=== PATIENT | male | born 1960 | race Caucasian/White ===

== ENCOUNTER 2019-09-18 08:29 | Outpatient (CLI) | payer OTHER, SELFPAY ==
--- NOTE | ~2019-09-18 | US_ITS ---
EXAMINATION: US arterial ankle brachial ind DATE: 09/18/2019 09:03 INDICATION: Claudication with burning sensation at the thighs. TECHNIQUE: Segmental pressures and plethysmographic and Doppler waveforms of the brachial and lower e xtremity arteries were obtained. COMPARISON: None. FINDINGS: Right and left brachial artery pressures of 106 mm Hg and 108 mm Hg, respectively, are concordant (no rmal difference <= 30 mmHg). The right ankle-brachial index (MAYA) is 1.30 (normal >= 0.9-1.0). The right great toe-brachial index (TBI) is 1.06 (normal >= 0.65). Arterial Doppler waveforms are biphasic with brisk systolic upstrokes at both the right posterior tibial and dorsalis pedis arteries. The left MAYA is 1.33. The left TBI is 0.91. Arterial Doppler waveforms are biphasic with brisk systol ic upstrokes at both the left posterior tibial and dorsalis pedis arteries. IMPRESSION: 1. Normal study with normal bilateral ABIs and TBI's. Reviewed, dictated and finalized at location A. OR C [employer]
== END 2019-09-18 08:30 | disposition home or self-care (01) ==
PROVIDERS: PCP Student in an Organized Health Care Education/Training Program; Visit Provider Student in an Organized Health Care Education/Training Program
DX: I73.9 Peripheral vascular disease, unspecified (principal)
CPT/HCPCS: 93922

== ENCOUNTER 2020-02-18 16:46 | Outpatient (CLI) | payer OTHER, SELFPAY ==
[2020-02-18 17:50] LABS: Basophils Absolute Auto 0.1 K/mm3 (0.0-0.1); Basophils Percent Auto 0.5 % (0.2-1.2); Eosinophils Absolute Auto 0.1 K/mm3 (0-0.3); Eosinophils Percent Auto 0.6 % (0-4.4); Hematocrit 42.3 % (42.0-52.0); Hemoglobin 14.1 g/dL (14.0-18.0); Immature Granulocyte Absolute 0.02 K/mm3 (0.00-0.031); Immature Granulocyte Percent A 0.2 % (0-0.5); Lymphocytes Absolute Auto 3.87 K/mm3 (0.9-3.2); Lymphocytes Percent Auto 38.9 % (18.3-44.2); Mean Corpuscular HGB Conc 33.3 g/dl (32-36); Mean Corpuscular Hemoglobin 31.9 pg (26-34); Mean Corpuscular Volume 95.7 fl (80-100); Mean Platelet Volume 9.7 fl (7.4-10.4); Monocytes Absolute Auto 0.9 K/mm3 (0.1-0.6); Monocytes Percent Auto 8.9 % (2.6-8.5); Neutrophils Absolute Auto 5.1 K/mm3 (1.3-6.7); Neutrophils Percent Auto 50.9 % (45.5-73.1); Platelet Count Result 337 k/mm3 (150-375); Red Blood Count 4.42 M/mm3 (4.6-6.20); Red Cell Distribution Width 13.9 % (11.5-14.5); White Blood Count 9.9 K/mm3 (4.5-10.0)
[2020-02-18 18:02] LABS: Alanine Aminotransferase 12 U/L (4-50); Albumin Level 4.3 g/dL (3.5-5.1); Alkaline Phosphatase 85 U/L (38-126); Aspartate Amino Transferase 19 U/L (17-59); Bilirubin,Total 0.2 mg/dL (0.2-1.3); Blood Urea Nitrogen 11 mg/dL (9-20); Calcium 9.1 mg/dL (8.4-10.2); Carbon Dioxide 23 mmol/L (22-30); Chloride 107 mmol/L (98-107); Cholesterol 163 mg/dL (0-200); Estimated Glomerular Filt Rate > 60; Glucose 97 mg/dL (75-110); HDL Direct 43 mg/dL; Sodium 139 mmol/L (137-145); Triglycerides 181 mg/dL (<150)
[2020-02-18 18:13] LABS: LDL Cholesterol Direct 89 mg/dL
[2020-02-18 18:33] LABS: Prostate Specific Antigen 0.6 ng/mL (< OR = 4.0)
[2020-02-18 19:08] LABS: Folic Acid 6.8 ng/mL (2.76->20)
[2020-02-18 19:12] LABS: Vitamin D 25 Hydroxy 45.6 ng/mL
== END 2020-02-18 16:47 | disposition home or self-care (01) ==
LOC: ANHLAB 16:51
PROVIDERS: PCP Student in an Organized Health Care Education/Training Program; Visit Provider Student in an Organized Health Care Education/Training Program
DX: Z13.0 Encounter for screening for diseases of the blood and blood-forming organs and certain disorders involving the immune mechanism (principal); Z13.29 Encounter for screening for other suspected endocrine disorder; Z13.228 Encounter for screening for other metabolic disorders; Z12.5 Encounter for screening for malignant neoplasm of prostate
CPT/HCPCS: 36415; 80053; 80061; 82306; 82607; 82746; 84153; 84443; 85025; G0103

== ENCOUNTER 2021-02-08 10:04 | Emergency (ER) | payer OTHER, SELFPAY ==
--- NOTE | ~2021-02-08 | XR_ITS ---
EXAMINATION: XR chest 2V DATE: 02/08/2021 10:59 INDICATION: Left chest pain. TECHNIQUE: Frontal and lateral views of the chest were obtained. COMPARISON: Chest 2 views 08/31/2019, chest CT 05/12/2019 FINDINGS: There is mild scarring at left lung apex. There is mild atelectasis at left lung base. A ca lcified left lung nodule and calcified left hilar lymph nodes are consistent with old granulomatous d isease. No pleural effusion or pneumothorax. The heart size is normal. IMPRESSION: 1. Mild atelectasis at left lung base. 2. Stable mild scarring at left lung apex. Reviewed, dictated and finalized at location A.
--- NOTE | 2021-02-08 10:08 | ECG_ITS ---
Measurements Intervals [place] Rate: 70 P: 66 NV: 133 QRS: 44 QRSD: 78 T: 43 QT: 354 QTc: 384 Interpretive Statements SINUS RHYTHM NORMAL ECG Electronically Signed On 02-08-2021 11:48:45 CDT by Thanh Fierro D.O.
[2021-02-08 10:12] VITALS: BP 108/66; PULSE 70; RESP 16; TEMP 36.9; O2SAT 96
[2021-02-08 10:25] VITALS: PULSE 69
[2021-02-08] MEDS: ASPIRIN 81 MG CHEWABLE TABLET 324 MG PO (10:27)
[2021-02-08 10:40] LABS: Basophils Percent Auto 0.5 % (0.2-1.2); Eosinophils Absolute Auto 0.1 K/mm3 (0-0.3); Eosinophils Percent Auto 1.1 % (0-4.4); Hematocrit 43.2 % (42.0-52.0); Hemoglobin 14.2 g/dL (14.0-18.0); Immature Granulocyte Absolute 0.02 K/mm3 (0.00-0.031); Immature Granulocyte Percent A 0.2 % (0-0.5); Lymphocytes Absolute Auto 3.47 K/mm3 (0.9-3.2); Lymphocytes Percent Auto 42.2 % (18.3-44.2); Mean Corpuscular HGB Conc 32.9 g/dl (32-36); Mean Corpuscular Hemoglobin 31.8 pg (26-34); Mean Corpuscular Volume 96.9 fl (80-100); Monocytes Absolute Auto 0.8 K/mm3 (0.1-0.6); Neutrophils Absolute Auto 3.8 K/mm3 (1.3-6.7); Platelet Count Result 370 k/mm3 (150-375); Red Blood Count 4.46 M/mm3 (4.6-6.20); Red Cell Distribution Width 14.1 % (11.5-14.5); White Blood Count 8.2 K/mm3 (4.5-10.0)
[2021-02-08] MEDS: KETOROLAC 30 MG/ML VIAL (*BKC) IV PUSH (10:44)
[2021-02-08 10:48] LABS: Prothrombin Time 13.1 Seconds (11.1-14.7)
[2021-02-08 10:49] LABS: Anion Gap 9 mmol/L (8-16); Blood Urea Nitrogen 14 mg/dL (9-20); Calcium 9.3 mg/dL (8.4-10.2); Carbon Dioxide 24 mmol/L (22-30); Chloride 107 mmol/L (98-107); Estimated CRCL calculation 61 ml/min; Estimated Glomerular Filt Rate > 60; Glucose 117 mg/dL (75-110); Partial Thromboplastin Time 27.1 SECONDS (22.3-36.8); Potassium 3.7 mmol/L (3.4-5.0); Sodium 140 mmol/L (137-145)
[2021-02-08 11:01] LABS: Troponin I < 0.012 ng/mL (0.000-0.034)
[2021-02-08 11:40] VITALS: BP 112/77; PULSE 58; RESP 15; O2SAT 98
--- NOTE | 2021-02-08 12:00 | ED.GENADULT ---
HPI - General Adult General Chief complaint: Chest Pain Stated complaint: chest pain, L arm numbness Time Seen by Provider: 02/08/21 10:35 History of Present Illness HPI narrative: Patient is a 60-year-old male who presents ER with left-sided chest pain. Lateral chest wall that is sharp and pinpoint. No radiation. It occurred while he was trying to take a hole. Had similar discomfort about a month ago while doing some other labor. He is scheduled to have a stress test in a week. No sweats or chills or nausea or vomiting. No shortness of breath. No other exertional chest discomfort outside when he is physically doing something. Related Data Allergies Allergy/AdvReac Type Severity Reaction Status Date / Time No Known Allergies Allergy Verified 09/07/19 13:55 Review of Systems Review of Systems: All systems reviewed & are unremarkable except as noted in HPI and below Constitutional: Constitutional: Denies chills, Denies fever(s) and Denies weakness ENT: Denies nasal congestion and Denies sore throat Cardiovascular: Cardiovascular: Reports chest pain, Denies rapid heart rate and Denies radiating jaw, neck or arm pain Respiratory: Respiratory: Denies cough, Denies dyspnea and Denies wheezing Gastrointestinal: Gastrointestinal: Denies abdominal pain, Denies nausea and Denies vomiting PMFSH Past Medical History Medical History (Updated 02/08/21 @ 14:26 by Parviz Enciso MD) Hypercholesteremia Ruptured spleen Surgical History Surgical History (System 09/07/19 @ 13:55 by Harriett Goetz) S/P splenectomy Family History Family History (System 09/07/19 @ 13:55 by Harriett Goetz) Father Cerebrovascular accident, Onset Age: 72 Family history of Parkinson's disease, Onset Age: 72 Patient's father is , Onset Age: 72 Mother Carcinoma of colon Patient's mother is Social History Social History (System 09/07/19 @ 13:55 by Harriett Goetz) Smoking status: Former smoker Second hand tobacco smoke exposure: No Alcohol intake: never Gender identity (if verbalized by the patient): Male Exam Narrative: Exam Narrative: GENERAL: Well-appearing, well-nourished, and in no acute distress. HEAD: Normocephalic, atraumatic. ENT: Mucous membranes moist. CHEST: Clear to auscultation. No respiratory distress. Point tender left mid axillary line lower chest wall. HEART: Regular rate and rhythm. Normal peripheral pulses. ABDOMEN: Soft, nontender, nondistended. EXTREMITIES: Normal range of motion. No edema. SKIN: Warm, dry, no rash. NEURO: Alert and oriented x3. PSYCH: Normal mood and affect. Course Course Emergency Course: Pain felt to be musculoskeletal given the fact that is reproducible. Troponins negative x2. Negative EKG. Will give work note to avoid exertion until cleared by stress test. Patient with normal heart rate when he is not sleeping. Bradycardia is only while lying peacefully in bed. Vital Signs Vital signs: Vital Signs Temperature 98.4 F 02/08/21 10:12 Pulse Rate 70 02/08/21 10:12 Respiratory Rate 16 02/08/21 10:12 Blood Pressure 108/66 02/08/21 10:12 Pulse Oximetry 96 02/08/21 10:12 Temperature 98.4 F 02/08/21 10:12 Pulse Rate 48 L 02/08/21 13:33 Respiratory Rate 13 02/08/21 13:33 Blood Pressure 112/77 02/08/21 11:40 Pulse Oximetry 96 02/08/21 13:33 Medical Decision Making Vital Signs Vital Signs: Vital Signs Temperature 98.4 F 02/08/21 10:12 Pulse Rate 70 02/08/21 10:12 Respiratory Rate 16 02/08/21 10:12 Blood Pressure 108/66 02/08/21 10:12 Pulse Oximetry 96 02/08/21 10:12 Temperature 98.4 F 02/08/21 10:12 Pulse Rate 48 L 02/08/21 13:33 Respiratory Rate 13 02/08/21 13:33 Blood Pressure 112/77 02/08/21 11:40 Pulse Oximetry 96 02/08/21 13:33 Lab Data Result diagrams: 02/08/21 10:28 02/08/21 10:28 Labs: Lab Resu
[2021-02-08 13:33] VITALS: PULSE 48; RESP 13; O2SAT 96
[2021-02-08 13:48] LABS: Troponin I < 0.012 ng/mL (0.000-0.034)
[2021-02-08 14:40] VITALS: BP 112/79; PULSE 57; RESP 14; O2SAT 98
== END 2021-02-08 14:40 | disposition home or self-care (01) ==
PROVIDERS: Emergency Provider Emergency Medicine; PCP Student in an Organized Health Care Education/Training Program
DX: R07.89 Other chest pain (principal); E78.00 Pure hypercholesterolemia, unspecified; Z87.891 Personal history of nicotine dependence; Z90.81 Acquired absence of spleen
CPT/HCPCS: 36415; 71046; 80048; 84484; 85025; 85055; 85610; 85730; 93005; 96374; 99284; A9270; J1885

== ENCOUNTER → 2021-07-27 02:51 | Outpatient (CLI) | payer OTHER, SELFPAY ==
[2021-07-27 19:47] LABS: SARS-CoV-2 RNA PCR Negative
== END ==
PROVIDERS: PCP Student in an Organized Health Care Education/Training Program; Visit Provider Student in an Organized Health Care Education/Training Program
DX: R09.82 Postnasal drip (principal); R53.83 Other fatigue; Z20.822 Contact with and (suspected) exposure to COVID-19
CPT/HCPCS: C9803; U0003; U0005

== ENCOUNTER 2022-05-26 21:30 | Inpatient (IN) | payer OTHER, SELFPAY ==
[2022-05-26] VITALS (9 sets, daily range): BP systolic 116–121; BP diastolic 74–84; PULSE 58–76; RESP 10–18; TEMP 37.3; O2SAT 80–94
--- NOTE | ~2022-05-26 | XR_ITS ---
EXAMINATION: XR chest 2V DATE: 05/26/2022 22:11 INDICATION: Chest pain TECHNIQUE: PA and lateral views of the chest were obtained. COMPARISON: Chest radiograph dated 02/08/2021 FINDINGS: Volume loss in the left hemithorax with elevation of left hemidiaphragm. Oblique bandlike discoid ate lectasis at the left lower lung zone. There is a thinner linear band of discoid atelectasis in the ri ght lower lung zone. No pulmonary edema, pleural effusion or pneumothorax. Calcified nodules in the l eft midlung zone and calcified left hilar and mediastinal lymph nodes consistent with old granulomato us disease. Heart size is normal. Mild thoracolumbar spondylosis. IMPRESSION: 1. Linear and bandlike opacities in the bilateral lower lung zones, left greater than right, the conf iguration favoring atelectasis over pneumonia. Reviewed, dictated and finalized at location A. IMPRESSION: 1. Linear and bandlike opacities in the bilateral lower lung zones, left greate r than right, the configuration favoring atelectasis over pneumonia.
--- NOTE | 2022-05-26 21:31 | ECG_ITS ---
Measurements Intervals [place] Rate: 67 P: 61 [place]: 137 QRS: 30 QRSD: 76 T: 39 QT: 353 QTc: 373 Interpretive Statements SINUS RHYTHM SMALL U WAVE PRESENT, CONSIDER HYPOKALEMIA. COMPARED TO ECG 02/08/2021 10:11:33 NO SIGNIFICANT CHANGES Electronically Signed On 05-27-2022 8:52:33 CDT by Jennifer Bassett M.D.
[2022-05-26 21:53] LABS: Basophils Absolute Auto 0.1 K/mm3 (0.0-0.1); Basophils Percent Auto 0.8 % (0.2-1.2); Eosinophils Absolute Auto 0.1 K/mm3 (0-0.3); Eosinophils Percent Auto 1.5 % (0-4.4); Hematocrit 45.3 % (42.0-52.0); Hemoglobin 15.2 g/dL (14.0-18.0); Immature Granulocyte Absolute 0.01 K/mm3 (0.00-0.031); Immature Granulocyte Percent A 0.1 % (0-0.5); Lymphocytes Absolute Auto 3.99 K/mm3 (0.9-3.2); Lymphocytes Percent Auto 45.2 % (18.3-44.2); Mean Corpuscular HGB Conc 33.6 g/dl (32-36); Mean Corpuscular Hemoglobin 31.9 pg (26-34); Mean Corpuscular Volume 95.2 fl (80-100); Mean Platelet Volume 9.8 fl (7.4-10.4); Monocytes Absolute Auto 1.2 K/mm3 (0.1-0.6); Monocytes Percent Auto 13.1 % (2.6-8.5); Neutrophils Absolute Auto 3.5 K/mm3 (1.3-6.7); Neutrophils Percent Auto 39.3 % (45.5-73.1); Platelet Count Result 293 k/mm3 (150-375); Red Blood Count 4.76 M/mm3 (4.6-6.20); Red Cell Distribution Width 13.7 % (11.5-14.5); White Blood Count 8.8 K/mm3 (4.5-10.0)
[2022-05-26 22:01] LABS: Alanine Aminotransferase 33 U/L (6-50); Albumin Level 4.3 g/dL (3.5-5.1); Alkaline Phosphatase 78 U/L (38-126); Anion Gap 11 mmol/L (8-16); Aspartate Amino Transferase 37 U/L (17-59); Bilirubin,Total 0.2 mg/dL (0.2-1.3); Blood Urea Nitrogen 16 mg/dL (9-20); Calcium 8.3 mg/dL (8.4-10.2); Carbon Dioxide 21 mmol/L (22-30); Chloride 104 mmol/L (98-107); Estimated CRCL calculation 51 ml/min; Estimated Glomerular Filt Rate > 60; Glucose 102 mg/dL (65-110); Lipase 229 U/L (23-300); Potassium 3.8 mmol/L (3.4-5.0); Sodium 136 mmol/L (137-145)
[2022-05-26 22:03] LABS: Partial Thromboplastin Time 29.7 SECONDS (22.3-36.8)
[2022-05-26 22:09] LABS: Atypical Lymphocytes Present; Platelet Estimate Adequate (Adequate)
[2022-05-26 22:11] LABS: Schistocytes None Seen (NORMAL)
[2022-05-26 22:12] LABS: Troponin I < 0.012 ng/mL (0.000-0.034)
[2022-05-26] MEDS: ASPIRIN 81 MG CHEWABLE TABLET 324 MG PO (22:32)
[2022-05-26 23:46] LABS: Influenza A QL RT-PCR Negative (Negative); Influenza B QL RT-PCR Negative (Negative); SARS-CoV-2 RNA PCR Positive
[2022-05-26 23:53] LABS: NT Pro B Type Natriuretic Pept 35 pg/mL (5-100)
[2022-05-27] VITALS (16 sets, daily range): BP systolic 103–115; BP diastolic 61–78; PULSE 57–70; RESP 10–20; TEMP 36.3–37; O2SAT 86–98; BMI 27.4
[2022-05-27 01:07] LABS: Troponin I < 0.012 ng/mL (0.000-0.034)
--- NOTE | 2022-05-27 01:09 | ED.GENADULT ---
HPI - General Adult General Chief complaint: Chest Pain Stated complaint: chest pain/cough X3 days Time Seen by Provider: 05/26/22 22:47 History of Present Illness HPI narrative: This is a 61-year-old male presenting ED with chief complaint flu-like symptoms for 3 days. The patient also has a diffuse chest pain when he coughs that is all over, 5/10 triggered by his cough and resolves in between episodes. Patient notes he has had fever, chills and headache. Patient does have a sick child at home. Patient is asplenic but believes he has had the appropriate vaccinations. Patient has not been vaccinated for COVID Related Data Allergies Allergy/AdvReac Type Severity Reaction Status Date / Time No Known Allergies Allergy Verified 05/26/22 22:07 Review of Systems Review of Systems: CONSTITUTIONAL: Denies night sweats. EYES: No eye pain ENT: Denies rhinorrhea CARDIOVASCULAR: Denies palpitations RESPIRATORY: Denies hemoptysis GASTROINTESTINAL: Denies hematemesis GENITOURINARY: Denies hematuria. SKIN: Denies rash MUSCULOSKELETAL: Denies myalgia. NEUROLOGIC: Denies weakness. PSYCHIATRIC: Denies delusions PMFSH Past Medical History Medical History Hypercholesteremia Ruptured spleen Surgical History Surgical History S/P splenectomy Family History Family History Father Cerebrovascular accident, Onset Age: 72 Family history of Parkinson's disease, Onset Age: 72 Patient's father is , Onset Age: 72 Mother Carcinoma of colon Patient's mother is Social History Social History Smoking status: Former smoker Second hand tobacco smoke exposure: No Alcohol intake: never Gender identity (if verbalized by the patient): Male Exam Narrative: APPEARANCE: No apparent distress. Head atraumatic. EYES: PERRLA/EOMI, NOSE: Normal no drainage NECK: Supple, Trachea midline RESPIRATORY: CTAB, No increased work of breathing. CARDIOVASCULAR: S1S2 appreciated ABDOMINAL: Soft, nontender, nondistended, MUSCULOSKELETAl: No obvious deformities NEURO: Alert. Moving 4/4 extremities SKIN:: Warm, dry. Normal color PSYCHIATRIC: Normal affect Course Vital Signs Vital signs: Vital Signs Temperature 99.2 F 05/26/22 21:32 Pulse Rate 76 05/26/22 21:32 Respiratory Rate 14 05/26/22 21:32 Blood Pressure 119/78 05/26/22 21:32 Pulse Oximetry 94 05/26/22 21:32 Temperature 99.2 F 05/26/22 21:32 Pulse Rate 63 05/26/22 22:31 Respiratory Rate 14 05/26/22 21:32 Blood Pressure 119/78 05/26/22 21:32 Pulse Oximetry 93 05/26/22 22:41 Oxygen Delivery Nasal Cannula 05/26/22 22:41 Oxygen Flow Rate 3 05/26/22 22:41 Procedures Pulse Oximetry Interpretation Digit-Finger: Pulse Oximetry Interpretation Date: 05/27/22 Initial pulse oximetry readin Pulse Oximetry: 95 Actions Taken: increased FIO2 to (2 L NC) Medical Decision Making MDM Narrative Medical decision making narrative: this is a 61-year-old male presenting to ED with URI symptoms. His COVID swab was positive. The patient is hypoxic on room air when speaking or when walking. He has been placed on 2 L oxygen. Laboratory studies were within acceptable limits. As the patient is requiring supplemental oxygen he will be treated with dexamethasone and admitted to the hospital for further management. Upon re-evaluation patient is doing better on oxygen. Vital signs are still stable. Chest x-ray did not reveal any infiltrates. EKG interpretation: Rhythm [sinus], Rate 67, [place] -[normal], [place] -[normal], QRS [narrow], QTC [normal], T waves -[negative for concerning inversions], ST Segments - [Negative for concerning elevations] Final interpretations:
--- NOTE | 2022-05-27 01:11 | PM.IMHP ---
H&P: HPI History of Present Illness Date/Time: 05/27/22 01:11 Chief Complaint: shortness of breath Narrative: This is a 61-year-old male with no significant past medical history patient presents to the emergency room due to 3 days of body aches pains, chills, poor appetite, he has been taking care of his 13-year-old who is sick with flu-like symptoms at home. patient denies any nausea, vomiting, abdominal pain, has had some diarrhea. has had persistent cough productive of clear scanty phlegm at times. Preliminary workup was significant for a positive COVID-19 patient was also found to have low oxygen saturation required supplemental oxygen by nasal cannula. Patient is been admitted for further evaluation management and treatment. Review of Systems Review of Systems: Cough, body aches and pains, poor appetite. Constitutional: Constitutional: Reports body ache(s), Denies chills, Reports fatigue, Denies fever(s), Reports malaise, Denies night sweats, Reports poor appetite and Reports weakness Eyes: Eyes: Denies change in vision ENT: Denies dysphagia, Denies vertigo, Denies dizziness and Denies odynophagia Cardiovascular: Cardiovascular: Denies chest pain, Denies syncope, Denies leg edema, Denies lightheadedness, Denies palpitations and Denies dyspnea on exertion Respiratory: Respiratory: Denies change in phlegm color, Reports cough, Denies excessive phlegm production and Reports dyspnea Gastrointestinal: Gastrointestinal: Denies abdominal pain, Denies dyspepsia, Denies heartburn, Denies diarrhea, Denies nausea and Denies vomiting Genitourinary: Genitourinary: Denies dysuria Musculoskeletal: Musculoskeletal: Reports myalgias Integumentary/Breasts: Skin/Breast: Denies rash Neurologic: Denies vertigo, Denies dizziness, Denies focal weakness and Denies Sensory deficit (Neuro) Psychiatric: Psychiatric: Reports no additional psychiatric complaints Endocrine: Endocrine: Denies cold intolerance, Denies flushing, Denies heat intolerance, Denies polyphagia, Denies polydipsia and Denies palpitations Hematologic/Lymphatic: Hematologic/Lymphatic: Reports no additional hematologic/lymphatic complaints and Reports as per HPI Allergic/Immunologic: Allergic/Immunologic: Reports no additional allergic/immunologic complaints and Reports as per HPI [facility] Past Medical History Medical History Hypercholesteremia Ruptured spleen Surgical History Surgical History (Reviewed 05/27/22 @ 01: by Jayden Matias MD) S/P splenectomy Family History Family History (Reviewed 05/27/22 @ : by Jayden Matias MD) Father Cerebrovascular accident, Onset Age: 72 Family history of Parkinson's disease, Onset Age: 72 Patient's father is , Onset Age: 72 Mother Carcinoma of colon Patient's mother is Social History Social History (Reviewed 05/27/22 @ 01: by Jayden Matias MD) Smoking status: Former smoker Second hand tobacco smoke exposure: No Alcohol intake: never Gender identity (if verbalized by the patient): Male Spiritual care concerns: No Has the Lack of Transportation Kept You From Medical Appointments or From Getting Medications?: No Within the Past 12 Months, Were You Worried Whether Your Food Would Run Out Before You Got Money to Buy More?: Never True What is Your Housing Situation Today?: I Have Housing Are You Worried That in the Next 2 Months, You May Not Have Your Own Housing to Live In?: No Do You Have Trouble Paying Your Heating Or Electricity Bill?: No Do You Have Trouble Paying For Medicines?: No Are You Currently Unemployed and Looking for Work?: No Highest Level of Education Completed: High School Diploma/GED Do You Have Trouble With Childcare or the Care of a Family Member?: No Meds Home Medications and Allergies Home Medications Medication Instructions Recorded Confirmed Type
[2022-05-27] MEDS: DEXAMETHASONE SOD PHOS INJ 4 MG/ML VIAL 12 MG IV PUSH (02:04)
--- NOTE | 2022-05-27 02:34 | ADMGEN ---
This patient, Mitchel Walters Jr., was admitted to Medical Room 260-01. Patient/family oriented to hospital policies and general routines including ID bracelet, bed and alarms, visiting hours, pain management, procedures, bathroom and other care routines, personal items, smoking policy, room service/diet, and visiting hours. Information on how to activate the Rapid Response Team has been discussed. Patient/Family are encouraged to report perceived risks to care and to ask questions if they do not understand what they are told or what they should do.
[2022-05-27 04:26] LABS: Troponin I < 0.012 ng/mL (0.000-0.034)
--- NOTE | 2022-05-27 07:15 | PM.IMPN ---
Progress Note: A&P Assessment and Plan (1) Acute respiratory failure due to COVID-19: Code(s): U07.1 - COVID-19; J96.00 - Acute respiratory failure, unspecified whether with hypoxia or hypercapnia Status: Acute Assessment and Plan: Symptom onset approximately 3 days prior to presentation. Positive COVID PCR on 05/26/2022. Patient hypoxic on presentation down to 80% Currently requiring 3 L supplemental O2 Continue dexamethasone #2 for up to 10 days Initiate remdesivir. First dose today. Monitor LFTs while on this medication Monitor oxygen requirements and titrate O2 as needed to maintain sats 92% or above CXR with mild atelectasis and stable scarring Supportive care to include bronchodilators, expectorants, antipyretics, CPT, incentive spirometry Monitor inflammatory markers Patient has not been vaccinated for COVID-19 (2) Pleuritic chest pain: Code(s): R07.81 - Pleurodynia Status: Acute Assessment and Plan: Secondary to above. Pain only occurs with coughing Continue expectorants Analgesics available as needed Troponin negative x3 PE unlikely. No tachycardia or tachypnea. Symptoms only occur with cough. Wells score is 0. (3) Asplenia: Code(s): Q89.01 - Asplenia (congenital) Status: Acute Assessment and Plan: Patient with history of splenic rupture s/p splenectomy. Follows with PCP and reports being up to date with vaccinations Subjective Date/time seen: 05/27/22 07:15 Interval history: Date of service: 05/27/2022 Mitchel Shaquille Walters Jr is a 61-year-old male with a history of hyperlipidemia, arthritis, asplenia, and tobacco abuse who is seen in follow-up for COVID-19 pneumonia. He is feeling okay today. His main complaint is that he has diffuse pleuritic chest pain any time he coughs. He has no chest pain at rest. He had been using cough drops at home and this seemed to help his cough some, but it did become more persistent. He denies shortness of breath. He has had very poor appetite and admits he has not been drinking enough fluids. He denies nausea, vomiting, fever, chills, abdominal pain, diarrhea. Denies weakness, dizziness, lightheadedness. He is able to ambulate independently. Denies headache, body aches. No change in sense of taste or smell. Review of Systems Review of Systems: All systems reviewed & are unremarkable except as noted in HPI and below Exam Narrative: General: Well-nourished, well-appearing 61-year-old male, sitting up in bed, comfortable, NARD Neuro: awake, alert and oriented x4, speech clear, no focal neuro deficits noted HEENMT: normocephalic, atraumatic, EOMI, sclerae anicteric Respiratory: clear to auscultation bilaterally, nonlabored breathing Cardio: regular rate, regular rhythm with S1-S2 Abdomen: nondistended, normoactive bowel sounds, soft, nontender to palpation Extremities: no edema, erythema, or tenderness to palpation, DP pulses 2+ bilaterally Skin: no rashes or lesions, warm and dry Psych: appropriate mood and affect, judgment and insight intact Objective Data Vital Signs Vital Signs: Vital Signs - 24 hr 05/27/22 01:30 05/26/22 21:32 05/26/22 22:31 Temperature 99.2 F Pulse Rate 76 63 Respiratory Rate 14 Blood Pressure 119/78 Pulse Oximetry 94 Pulse Oximetry [Digit-Finger] 95 Oxygen Delivery Oxygen Flow Rate 05/26/22 22:38 05/26/22 22:41 05/26/22 23:00 Temperature Pulse Rate 60 Respiratory Rate 14 Blood Pressure Pulse Oximetry 84 L 93 92 Pulse Oximetry [Digit-Finger] Oxygen Delivery Room Air Nasal Cannula Oxygen Flow Rate 3 05/26/22 23:01 05/26/22 23:15 05/26/22 23:16 Temperature Pulse Rate 62 58 L 61 Respiratory Rate 15 15 10 L Blood Pressure 121/84 116/74 Pulse Oximetry 94 80 L 91 Pulse Oximetry [Digit-Finger] Oxygen Delivery Oxygen Flow Rate 05/26/22 23:53 05/27/22 00:00 05/27/22 00:16 Temperature
[2022-05-27 08:10] LABS: Alanine Aminotransferase 31 U/L (6-50); Estimated CRCL calculation 58 ml/min; Estimated Glomerular Filt Rate > 60
[2022-05-27] MEDS: ALBUTEROL SULFATE (*SP) INHALER 2 PUFF INHALATION ×2 (08:40→22:18)
[2022-05-27] MEDS: guaiFENesin 12 HR 600 MG TABCR PO ×2 (09:58→20:07)
[2022-05-27] MEDS: ENOXAPARIN 40 MG/0.4 ML SYRINGE SUB-Q (09:59)
[2022-05-27] MEDS: REMDESIVIR 200 MG/NS 250 ML 200 MG/250 ML BAG 250 MG IVPB (09:59)
[2022-05-28] MEDS: ALBUTEROL SULFATE (*SP) INHALER 2 PUFF INHALATION ×2 (02:15→14:14)
[2022-05-28 03:59] VITALS: BP 100/57; PULSE 52; RESP 20; TEMP 36.1; O2SAT 95
[2022-05-28 05:55] LABS: Hematocrit 46.4 % (42.0-52.0); Hemoglobin 15.4 g/dL (14.0-18.0); Mean Corpuscular HGB Conc 33.2 g/dl (32-36); Mean Corpuscular Hemoglobin 31.8 pg (26-34); Mean Corpuscular Volume 95.7 fl (80-100); Mean Platelet Volume 10.1 fl (7.4-10.4); Platelet Count Result 289 k/mm3 (150-375); Red Blood Count 4.85 M/mm3 (4.6-6.20); Red Cell Distribution Width 13.6 % (11.5-14.5); White Blood Count 10.1 K/mm3 (4.5-10.0)
[2022-05-28 06:14] LABS: Alanine Aminotransferase 29 U/L (6-50); Albumin Level 4.5 g/dL (3.5-5.1); Alkaline Phosphatase 71 U/L (38-126); Anion Gap 15 mmol/L (8-16); Aspartate Amino Transferase 33 U/L (17-59); Bilirubin,Total 0.3 mg/dL (0.2-1.3); Blood Urea Nitrogen 20 mg/dL (9-20); CRP < 0.5 mg/dL (<1.0); Calcium 8.9 mg/dL (8.4-10.2); Carbon Dioxide 23 mmol/L (22-30); Chloride 103 mmol/L (98-107); Estimated CRCL calculation 58 ml/min; Estimated Glomerular Filt Rate > 60; Glucose 95 mg/dL (65-110); Lactate Dehydrogenase 163 U/L (120-246); Potassium 4.7 mmol/L (3.4-5.0); Sodium 141 mmol/L (137-145)
[2022-05-28 07:45] VITALS: O2SAT 97
[2022-05-28 08:00] VITALS: O2SAT 97
--- NOTE | 2022-05-28 08:30 | PM.DS ---
DS: Admitting Diagnosis Discharge Date 05/28/22829 Admitting Diagnosis COVID DS: Discharge Diagnosis Discharge Diagnosis (1) Acute respiratory failure due to COVID-19: Code(s): U07.1 - COVID-19; J96.00 - Acute respiratory failure, unspecified whether with hypoxia or hypercapnia Status: Acute Assessment and Plan: Symptom onset approximately 3 days prior to presentation. Positive COVID PCR on 05/26/2022. Patient hypoxic on presentation down to 80% Currently requiring 3 L supplemental O2 Continue dexamethasone #2 for up to 10 days Initiate remdesivir. First dose today. Monitor LFTs while on this medication Monitor oxygen requirements and titrate O2 as needed to maintain sats 92% or above CXR with mild atelectasis and stable scarring Supportive care to include bronchodilators, expectorants, antipyretics, CPT, incentive spirometry Monitor inflammatory markers Patient has not been vaccinated for COVID-19 (2) Pleuritic chest pain: Code(s): R07.81 - Pleurodynia Status: Acute Assessment and Plan: Secondary to above. Pain only occurs with coughing Continue expectorants Analgesics available as needed Troponin negative x3 PE unlikely. No tachycardia or tachypnea. Symptoms only occur with cough. Wells score is 0. (3) Asplenia: Code(s): Q89.01 - Asplenia (congenital) Status: Acute Assessment and Plan: Patient with history of splenic rupture s/p splenectomy. Follows with PCP and reports being up to date with vaccinations DS: Summary Hospital Course Hospital Course: ?This is a 61-year-old male with no significant past medical history patient presents to the emergency room due to 3 days of body aches pains, chills, poor appetite, he has been taking care of his 13-year-old who is sick with flu-like symptoms at home. patient denies any nausea, vomiting, abdominal pain,?diarrhea.? He does have a cough productive of clear scanty phlegm?at time, however seems to be resolved at this time. Patient did test positive for COVID-19. Patient was started on remdesivir and dexamethasone. Patient also needed supplemental oxygen due to low oxygen saturations. Supplemental oxygen has been weaned down. Patient is currently on room air. Chest x-ray showed linear and bandlike opacities in the bilateral lower lung zones. Patient is feeling a lot better today and is wanting to go home. Patient denies any chest pain, shortness a breath, nausea, vomiting, diarrhea, constipation, weakness or fatigue. Patient has been up walking to the bathroom. Patient did state that he does get a little short of breath with some exertion however is nothing that does not resolve quickly. Patient is stable for discharge at this time per labs and vital signs. Status at Discharge Functional status at discharge: independent ambulation Overall status at discharge: patient is progressing back to baseline Time Spent with Patient Time attestation: Total time spent providing and/or coordinating discharge services: 37 minutes Time spent: Greater than 30 minutes Specific discharge activities: Diagnostic testing, chart review, developing a treatment plan, education, care coordination documentation, physical exam, result review Exam Const: General: cooperative, comfortable, no acute distress, well developed, alert, awake and average body habitus Nutritional Appearance: average body habitus Orientation/consciousness: patient oriented x3 HENMT: Head: normal to inspection, normocephalic and atraumatic Ears: hearing grossly normal bilaterally Face/Nose/Sinus: normal facial exam Face and sinus: normal facial exam Eyes: General: appearance normal, both eyes and all related structures Pupils: Equal, round and reactive pupils present EOM: EOMs intact bilaterally Neck: Neck: full ROM, no lymphadenopathy and no JVD Thyroid: thyroid normal Lymphatic: no lymphadenopathy noted Resp: Effort & Inspection: normal re
[2022-05-28] MEDS: ENOXAPARIN 40 MG/0.4 ML SYRINGE SUB-Q (09:33)
[2022-05-28] MEDS: guaiFENesin 12 HR 600 MG TABCR PO (09:33)
[2022-05-28] MEDS: REMDESIVIR 100 MG/NS 250 ML 100 MG/250 ML BAG 250 MG IVPB (09:38)
[2022-05-28 14:14] VITALS: O2SAT 96
== END 2022-05-28 14:19 | disposition home or self-care (01) | DRG 137 ==
LOC: ANHED 05-27 01:30 → ANH2MED 05-27 01:53
PROVIDERS: Physician Assistant; Admitting Provider Internal Medicine; Emergency Provider Emergency Medicine; PCP Student in an Organized Health Care Education/Training Program; Visit Provider Nurse Practitioner
DX: U07.1 COVID-19 (principal); J96.01 Acute respiratory failure with hypoxia; E78.5 Hyperlipidemia, unspecified; M19.90 Unspecified osteoarthritis, unspecified site; Z28.310 Unvaccinated for COVID-19; Z79.899 Other long term (current) drug therapy; Z90.81 Acquired absence of spleen
CPT/HCPCS: 36415; 71046; 80053; 82565; 82728; 83615; 83690; 83880; 84460; 84484; 85025; 85027; 85610; 85730; 86140; 87502; 93005; 94640; 94667; 94668; 99285; A9270; C9803; J0248; J1100; J1650; U0003; U0005

== ENCOUNTER 2023-04-11 12:10 | Emergency (ER) | payer OTHER, SELFPAY ==
[2023-04-11 12:52] VITALS: BP 101/53; PULSE 52; RESP 16; TEMP 36.3; O2SAT 100
--- NOTE | 2023-04-11 13:32 | ED.URI ---
HPI - URI/Sore Throat General Chief Complaint: Upper Respiratory Infection Stated Complaint: Sore Throat Time Seen by Provider: 04/11/23 13:26 Source: patient and RN notes reviewed Mode of arrival: ambulatory Limitations: no limitations History of Present Illness HPI Narrative: Patient presents today complaining of sore throat and rhinorrhea since last night. He has been taking NyQuil some relief. States the pain did wake him up last night from sleep. Patient's son and daughter were both seen had [facility] in the last couple of days and diagnosed with strep throat. Related Data Home Medications Medication Instructions Recorded Confirmed No Home Medications 04/11/23 04/11/23 Allergies Allergy/AdvReac Type Severity Reaction Status Date / Time No Known Allergies Allergy Verified 04/11/23 12:28 Review of Systems Review of Systems: CONSTITUTIONAL: Denies body aches, fever, chills, or sweats. EYES: Denies visual changes, redness, or discharge. ENT: Denies congestion, or otalgia.+ rhinorrhea, sore CARDIOVASCULAR: Denies chest pain, palpitations, or edema. RESPIRATORY: Denies cough or dyspnea. GASTROINTESTINAL: Denies abdominal pain, nausea, vomiting, or diarrhea. GENITOURINARY: Denies dysuria or hematuria. SKIN: Denies rash, itching, or wounds. MUSCULOSKELETAL: Denies back pain, joint pain, or myalgia. NEUROLOGIC: Denies headache, numbness, tingling, or weakness. PSYCH: Denies depression or anxiety. [facility] Past Medical History Medical History Hypercholesteremia Ruptured spleen Surgical History Surgical History S/P splenectomy Family History Family History Father Cerebrovascular accident, Onset Age: 72 Family history of Parkinson's disease, Onset Age: 72 Patient's father is , Onset Age: 72 Mother Carcinoma of colon Patient's mother is Social History Social History Smoking status: Former smoker Tobacco type: cigarettes Second hand tobacco smoke exposure: No Alcohol intake: never Lack of Transportation: No Lack of Food: Never True Current Housing: I Have Housing Concerned About Future Housing: No Difficulty Paying Gas/Electric Bills: No Difficulty Paying for Meds: No Currently Unemployed: No Education: High School Diploma/GED Difficulty w/ Childcare or Family Care: No Gender identity (if verbalized by the patient): Male Spiritual care concerns: No Comments At time of signature, I have reviewed and agree with nursing past medical, surgical, social and family history unless otherwise noted. Please see nursing chart for further information. There is no relevant family history pertinent to the presenting complaint Exam Narrative: GENERAL: Well-appearing, well-nourished, and in no acute distress. HEAD: Normocephalic, atraumatic. EYES: EOMI. No redness or drainage. Conjunctivae normal. ENT: Mucous membranes pink and moist. Nares clear. No rhinorrhea. TMs normal bilaterally. Throat mildly erythematous without edema or exudate. Uvula midline. NECK: Normal AROM. Supple. No lymphadenopathy. CHEST: No respiratory distress. Clear to auscultation. HEART: Regular rate and rhythm. No murmur appreciated. Normal peripheral pulses. EXTREMITIES: Normal range of motion. No edema. SKIN: Warm, dry, no rash. Capillary refill normal. Normal skin turgor. NEURO: No focal deficits. Alert and oriented x3. Gait steady. PSYCH: Normal affect. No signs of depression or anxiety. Course Course Level of Care: [facility] Visit Vital Signs Vital signs: Vital Signs Temperature 97.4 F L 04/11/23 12:52 Pulse Rate 52 L 04/11/23 12:52 Respiratory Rate 16 04/11/23 12:52 Blood Pressur
== END 2023-04-11 13:56 | disposition home or self-care (01) ==
PROVIDERS: Emergency Provider Nurse Practitioner; PCP Student in an Organized Health Care Education/Training Program
DX: J02.9 Acute pharyngitis, unspecified (principal); Z87.891 Personal history of nicotine dependence; E78.00 Pure hypercholesterolemia, unspecified
CPT/HCPCS: 87081; 87880; 99213; G0463

== ENCOUNTER 2024-04-29 15:27 | Emergency (ER) | payer OTHER, SELFPAY ==
--- NOTE | ~2024-04-29 | XR_ITS ---
XR chest 1V portable Ordering provider: Jayden Matias MD History: 63 years Male with . Cough . Comparison: May 26, 2022 FINDINGS: MEDIASTINUM: The cardiac silhouette is not enlarged. LUNGS: No infiltrates, effusions or pneumothorax. OTHER: No free air under the diaphragm. IMPRESSION: No acute cardiopulmonary pathology. Reviewed, dictated and finalized at location A.
[2024-04-29 15:36] VITALS: BP 117/89; PULSE 63; RESP 16; TEMP 36.6; O2SAT 99
[2024-04-29 15:44] VITALS: BP 115/89; PULSE 65; RESP 10; O2SAT 97
--- NOTE | 2024-04-29 15:46 | ECG_ITS ---
Test Date: 2024-04-29 16:05:06 Measurements Intervals [place] Rate: 53 P: 37 HI: 151 QRS: 18 QRSD: 78 T: 18 QT: 403 QTc: 379 Interpretive Statements SINUS BRADYCARDIA EARLY PRECORDIAL R/S TRANSITION BORDERLINE ECG No previous ECG available for comparison Electronically Signed On 04-30-2024 05:34:19 CDT by Thanh Fierro D.O.
--- NOTE | 2024-04-29 16:14 | ED.GENADULT ---
HPI - General Adult General Chief complaint: Shortness of Breath/Dyspnea Stated complaint: cough, chest pain Time Seen by Provider: 04/29/24 15:44 History of Present Illness HPI narrative: This is a 63-year-old male presenting with 3 or 4 days of cough. He has been coughing up colorless phlegm. After coughing for several days he started developed pain in the upper abdomen whenever he coughs. No pain at rest. Patient is concerned he may have pneumonia. He is not have any fevers chills nausea vomiting diarrhea. No abdominal pain or lower extremity edema. Related Data Home Medications Medication Instructions Recorded Confirmed No Home Medications 04/11/23 04/11/23 Allergies Allergy/AdvReac Type Severity Reaction Status Date / Time No Known Allergies Allergy Verified 04/29/24 15:28 [facility] Past Medical History Medical History Hypercholesteremia Ruptured spleen Surgical History Surgical History S/P splenectomy Family History Family History Father Cerebrovascular accident, Onset Age: 72 Family history of Parkinson's disease, Onset Age: 72 Patient's father is , Onset Age: 72 Mother Carcinoma of colon Patient's mother is Social History Social History Smoking status: Former smoker Tobacco type: cigarettes Second hand tobacco smoke exposure: No Alcohol intake: never Lack of Transportation: No Lack of Food: Never True Current Housing: I Have Housing Concerned About Future Housing: No Difficulty Paying Gas/Electric Bills: No Difficulty Paying for Meds: No Currently Unemployed: No Education: High School Diploma/GED Difficulty w/ Childcare or Family Care: No Gender identity (if verbalized by the patient): Male Spiritual care concerns: No Exam Narrative: APPEARANCE: No apparent distress. Well-appearing Head: atraumatic. EYES: EOMI, NOSE: Atraumatic NECK: Trachea midline RESPIRATORY: No increased rate of breathing, clear to auscultation CARDIOVASCULAR: RRR, no peripheral edema ABDOMINAL: Non-distended, soft nontender MUSCULOSKELETAl: No obvious deformities NEURO: Alert. Moving 4/4 extremities SKIN:: Warm, dry. Normal color PSYCHIATRIC: Normal affect Course Vital Signs Vital signs: Vital Signs Temperature 97.8 F 04/29/24 15:36 Pulse Rate 63 04/29/24 15:36 Respiratory Rate 16 04/29/24 15:36 Blood Pressure 117/89 04/29/24 15:36 Pulse Oximetry 99 04/29/24 15:36 Temperature 97.8 F 04/29/24 15:36 Pulse Rate 63 04/29/24 15:36 Respiratory Rate 16 04/29/24 15:36 Blood Pressure 117/89 04/29/24 15:36 Pulse Oximetry 99 04/29/24 15:36 Medical Decision Making MDM Narrative Medical decision making narrative: -Course: 63-year-old male presenting with 3 days cough. He developed some mild chest pain while coughing which is likely musculoskeletal. Patient is well-appearing with stable vital signs. Laboratory studies within normal limits. Chest x-ray without pneumonia. Viral swabs are negative. Patient will be discharged to follow-up with his primary care physician for further management. -DDX includes but is not limited to: COVID flu URI bronchitis -Co-morbidities complicating care: Hyperlipidemia -Independent interpretation of studies: White count 9.2. COVID swabs negative. Chest x-ray negative Independent EKG interpretation: Rhythm [sinus], Rate [52], [place] -[normal], [place] -[normal], QRS [narrow], QTC [normal], T waves -[negative for concerning inversions], ST Segments - [Negative for concerning elevations] Final interpretations: Sinus bradycardia -Shared decision making / Disposition: Discharge Vital Signs Vital Signs: Vital Signs Temperature 97.8 F 04/29
[2024-04-29 16:24] LABS: Basophils Absolute Auto 0.1 K/mm3 (0.0-0.1); Basophils Percent Auto 0.9 % (0.2-1.2); Eosinophils Absolute Auto 0.3 K/mm3 (0-0.3); Eosinophils Percent Auto 3.1 % (0-4.4); Hematocrit 39.8 % (42.0-52.0); Hemoglobin 13.3 g/dL (14.0-18.0); Immature Granulocyte Absolute 0.02 K/mm3 (0.00-0.031); Immature Granulocyte Percent A 0.2 % (0-0.5); Lymphocytes Absolute Auto 4.88 K/mm3 (0.9-3.2); Lymphocytes Percent Auto 53.3 % (18.3-44.2); Mean Corpuscular HGB Conc 33.4 g/dl (32-36); Mean Corpuscular Volume 95.9 fl (80-100); Mean Platelet Volume 10.1 fl (7.4-10.4); Monocytes Percent Auto 10.6 % (2.6-8.5); Neutrophils Absolute Auto 2.9 K/mm3 (1.3-6.7); Neutrophils Percent Auto 31.9 % (45.5-73.1); Platelet Count Result 309 k/mm3 (150-375); Red Blood Count 4.15 M/mm3 (4.6-6.20); Red Cell Distribution Width 14.3 % (11.5-14.5); White Blood Count 9.2 K/mm3 (4.5-10.0)
[2024-04-29 16:36] VITALS: BP 90/54; PULSE 52; RESP 10; O2SAT 96
[2024-04-29 16:46] LABS: Alanine Aminotransferase 14 U/L (6-50); Alkaline Phosphatase 79 U/L (38-126); Anion Gap 5 mmol/L (4-12); Aspartate Amino Transferase 25 U/L (17-59); Bilirubin,Total 0.3 mg/dL (0.2-1.3); Blood Urea Nitrogen 9 mg/dL (9-20); Calcium 8.7 mg/dL (8.4-10.2); Carbon Dioxide 27 mmol/L (22-30); Chloride 106 mmol/L (98-107); Estimated CRCL calculation 59 ml/min; Estimated Glomerular Filt Rate > 60; Glucose 92 mg/dL (65-110); Sodium 138 mmol/L (137-145)
[2024-04-29 16:50] LABS: Platelet Estimate Adequate (Adequate); Schistocytes None Seen
[2024-04-29 17:00] LABS: Influenza A QL RT-PCR Negative (Negative); Influenza B QL RT-PCR Negative (Negative); RSV RNA, RT-PCR Negative (Negative); SARS-CoV-2 RNA PCR Negative (Negative)
== END 2024-04-29 17:41 | disposition home or self-care (01) ==
PROVIDERS: Emergency Provider Emergency Medicine; PCP Student in an Organized Health Care Education/Training Program
DX: J40 Bronchitis, not specified as acute or chronic (principal); Z20.822 Contact with and (suspected) exposure to COVID-19; E78.00 Pure hypercholesterolemia, unspecified; Z87.891 Personal history of nicotine dependence; Z90.81 Acquired absence of spleen; R00.1 Bradycardia, unspecified
CPT/HCPCS: 36415; 71045; 80053; 85025; 87637; 93005; 99283

== ENCOUNTER 2024-09-14 11:56 | Emergency (ER) | payer OTHER, SELFPAY ==
[2024-09-14 12:13] VITALS: BP 113/68; PULSE 63; RESP 16; TEMP 36.4; O2SAT 99
--- NOTE | 2024-09-14 12:31 | ED_ITS ---
HPI - URI/Sore Throat General Chief Complaint: Upper Respiratory Infection Stated Complaint: Congestion Time Seen by Provider: 09/14/24 12:31 Source: patient, RN notes reviewed and old records reviewed Mode of arrival: ambulatory Limitations: no limitations History of Present Illness HPI Narrative: 63-year-old male presents to the [facility] with 2 day history congestion, subjective fevers x2 days. No treatment prior to arrival. Denies sore throat. Denies shortness Onset (ago): day(s) (2) Treatments prior to arrival: none Related Data Home Medications ?Medication ?Instructions ?Recorded ?Confirmed ?Last Taken ?Type rosuvastatin 5 mg tablet mg 09/14/24 Unknown History tamsulosin 0.4 mg capsule mg PO 09/14/24 Unknown History Allergies Allergy/AdvReac Type Severity Reaction Status Date / Time No Known Allergies Allergy Verified 04/29/24 15:28 Review of Systems Review of Systems: All systems reviewed & are unremarkable except as noted in HPI and below Constitutional: Constitutional: Reports as per HPI, Reports body ache(s) and Reports fever(s) ENT: Reports system reviewed and no additional complaints, except as documented Cardiovascular: Cardiovascular: Reports no additional cardiovascular complaints, Denies chest pain and Denies dyspnea Respiratory: Respiratory: Reports as per HPI, Denies chest congestion, Reports cough and Denies dyspnea Musculoskeletal: Musculoskeletal: Reports no additional musculoskeletal complaints Integumentary/Breasts: Skin/Breast: Reports system reviewed and no additional complaints, except as docu PMFSH Past Medical History Medical History Hypercholesteremia Ruptured spleen Surgical History Surgical History S/P splenectomy Family History Family History Father Cerebrovascular accident, Onset Age: 72 Family history of Parkinson's disease, Onset Age: 72 Patient's father is , Onset Age: 72 Mother Carcinoma of colon Patient's mother is Social History Social History Smoking status: Former smoker Tobacco type: cigarettes Second hand tobacco smoke exposure: No Alcohol intake: never Lack of Transportation: No Lack of Food: Never True Current Housing: I Have Housing Concerned About Future Housing: No Difficulty Paying Gas/Electric Bills: No Difficulty Paying for Meds: No Currently Unemployed: No Education: High School Diploma/GED Difficulty w/ Childcare or Family Care: No Gender identity (if verbalized by the patient): Male Spiritual care concerns: No Comments At the time of my signature, I reviewed and agree with the nursing past medical, surgical, social, and family history. There is no relevant family history pertinent to the patient complaint. Exam Const: General: cooperative, healthy appearing, comfortable, no acute distress, well developed, alert and well nourished Nutritional Appearance: well nourished Orientation/consciousness: patient oriented x3 Limitations: no limitations HENMT: Head: normal to inspection Ears: hearing grossly normal bilaterally, external ears normal, TM's normal bilaterally, EAC's normal, mastoids normal and no periauricular adenopathy Mouth: Yes Normal oral and palatal mucosa present, Yes lip normal, Yes tongue normal and Yes moist mucous membranes Throat: posterior oropharynx normal, uvula midline and no uvular edema Eyes: General: appearance normal, both eyes and all related structures Alignment and Position: alignment normal Neck: Neck: normal visual inspection, full ROM, no lymphadenopathy and no meningeal signs Chest: Chest palpation & inspection: normal inspection of the chest Resp: Effort & Inspection: normal respiratory effort and able to speak in complete sentences Auscultation: clear to auscultation bilaterally, no crackles, no rales, no rhonchi and no wheezes Cardio: Rate: regular rate Skin: General skin exam: normal color and no rashes or lesions noted Neuro: General: patient oriented x3, gait normal, moves all extremities and no meningeal signs Cognition (Neuro): normal cognition Speech: normal speech Gait exam (Neuro): Normal gait present Extrem: General: normal to inspection, full ROM, capillary refill normal and normal gait Psych: Appearance: grossly normal and well kempt Mental Status: mental status grossly normal Speech and movement: Normal speech and movement present and Clear speech present Affect: normal affect Attitude: cooperative Course Course Level of Care: [facility] Visit Vital Signs Vital signs: Vital Signs Temperature 97.6 F 09/14/24 12:13 Pulse Rate 63 09/14/24 12:13 Respiratory Rate 16 09/14/24 12:13 Blood Pressure 113/68 09/14/24 12:13 Pulse Oximetry 99 09/14/24 12:13 Oxygen Delivery Room Air 09/14/24 12:13 Temperature 97.6 F 09/14/24 12:13 Pulse Rate 63 09/14/24 12:13 Respiratory Rate 16 09/14/24 12:13 Blood Pressure 113/68 09/14/24 12:13 Pulse Oximetry 99 09/14/24 12:13 Oxygen Delivery Room Air 09/14/24 12:13 Reviewed MDM - URI/Sore Throat MDM Narrative Medical decision making narrative: Patient sitting in exam room. Nontoxic, vitals stable. Patient in no acute distress. Patient presents with 2 day history of viral URI symptoms. Flu and COVID are negative. No acute findings noted on exam Patient appropriate for outpatient treatment and follow-up Discharge instructions reviewed with patient, as well as provided in writing per nursing staff. The instructions also include specific and strict return/GO TO THE ER as well as f/u information. All questions have been answered, and the patient deny any further questions with discharge and discharge plan. Some parts of this dictation were generated by voice recognition software and may contain typographical and/or grammatical inaccuracies. Differential Diagnosis Differential diagnosis: Likely upper respiratory infection, sinusitis, viral infection, bronchitis and influenza Lab Data Labs: Lab Results 09/14/24 Range/Units 12:27 POC Influenza A Ag Negative (Negative) POC Influenza B Ag Negative (Negative) POC SARS CoV-2 Ag Negative (Negative) Reviewed Critical Care Time Critical Care Time Critical Care Time: No Discharge Plan Discharge Clinical Impression: Viral infection Upper respiratory infection Qualifiers: URI type: unspecified viral URI Qualified Code(s): J06.9 - Acute upper respiratory infection, unspecified Patient Disposition: Home, Self-Care Condition: Stable Instructions: Antibiotic Form, Upper Respiratory Infection (ED) Additional Instructions: Your rapid COVID test were negative Your rapid flu test was negative Your symptoms are likely due to a viral illness, which is not treated with antibiotics. Typically viral infections last 7-10 days, can linger for couple of weeks. It is very important to treat your symptoms. Drink plenty of water, Gatorade, Pedialyte, ice pops or Jell-O. -Alternate Tylenol and Motrin per package directions for fever or pain. You can alternate every 4 hours -Antihistamine medication such as Zyrtec/Claritin/Gela during the day can help improve symptoms. -doing daily nasal irrigations can help relieve pressure your sinuses. Things like a Neti pot -Use Flonase twice a day for 5 days then daily to help reduce the inflammation and dry up your sinuses. -You can also use Mucinex. Be sure to drink plenty of water with this medication at least 8 ounces with every dose and it is important to drink 8 to 10 glasses of water per day. Water is a natural decongestant -Eat and drink things that are easy to swallow, like tea or soup, or popsicles. -Oral rinses such as: Salt water gargles and/or may use topical anesthetic (eg. Chloraseptic spray) or lozenges to relieve dryness or throat pain). -Frequent hand washing or hand tumbler operator is one of the best ways to prevent spread of infection. -Using a vaporizer or humidifier at night will also help thin secretions and help with coughing up phlegm. -Follow up with primary care provider in 7-10 days if condition is not improving - For new or worsening symptoms go directly to the nearest ER Patient Language: Upper Sorbian Prescriptions: No Action tamsulosin 0.4 mg capsule PO rosuvastatin 5 mg tablet Follow-up/Referrals: Serge,DO Prieto [Primary Care Provider] - 1 Week ([facility] follow- up) Stand Alone Forms: Work/School Release IP Time of Disposition: 12:55
[2024-09-14 12:50] LABS: EDCOVIDSCREEN Negative (Negative); EDINFLUASCREEN Negative (Negative); EDINFLUBSCREEN Negative (Negative)
== END 2024-09-14 13:13 | disposition home or self-care (01) ==
PROVIDERS: Emergency Provider Nurse Practitioner; PCP Student in an Organized Health Care Education/Training Program
DX: B34.9 Viral infection, unspecified (principal); J06.9 Acute upper respiratory infection, unspecified; E78.00 Pure hypercholesterolemia, unspecified; Z87.891 Personal history of nicotine dependence; Z20.822 Contact with and (suspected) exposure to COVID-19
CPT/HCPCS: 87426; 87804; 99212; G0463

== ENCOUNTER 2025-03-15 09:04 | Emergency (ER) | payer MEDICARE, MEDICAID, SELFPAY ==
--- NOTE | ~2025-03-15 | CT_ITS ---
EXAMINATION: CTA chest PE protocol DATE: 03/15/2025 12:36 CDT INDICATION: Shortness of breath. TECHNIQUE: Computed tomographic angiography (CTA) of the chest was performed with 100 mL Omnipaque-35 0 intravenous contrast. The dose-length product was 301.48 mGy-cm. Maximum intensity projection 3D-re constructions of the aorta and other arteries were constructed by the technologist on a separate work station. COMPARISON: CT dated 05/12/2019. FINDINGS: No significant pleural or pericardial effusion. Mild mediastinal lymphadenopathy, likely re active. Study is technically adequate without evidence for pulmonary embolism. No evidence for aortic aneurysm or dissection. No significant pleural or pericardial effusion. There is left lower lobe ate lectasis. There is emphysema. Mild thoracic spondylosis. IMPRESSION: 1. No evidence for pulmonary embolism. 2: Left lower lobe atelectasis. Reviewed, dictated and finalized at location A.
--- NOTE | ~2025-03-15 | XR_ITS ---
XR chest 2V 03/15/2025 09:57 Indication: Shortness of breath. Neck pain. Procedure: 2 view chest Comparison: 02/08/2021 Findings: There is left lower lobe atelectasis. Heart size normal. Mildly elevated left diaphragm. Ri ght lung clear. No pneumothorax. No acute osseous abnormality. Impression: 1: Left lower lobe atelectasis. Reviewed, dictated and finalized at location A. Impression: 1: Left lower lobe atelectasis.
--- NOTE | ~2025-03-15 | XR_ITS ---
XR shoulder LT min 2V 03/15/2025 09:57 INDICATION: Left shoulder pain PROCEDURE: 4 views left shoulder COMPARISON: No prior studies for comparison. FINDINGS: Fracture, dislocation or subluxation is not identified. The soft tissues appear within norm al limits. No foreign bodies are identified. IMPRESSION: 1: NO ACUTE BONE OR JOINT ABNORMALITY IDENTIFIED. Reviewed, dictated and finalized at location A.
--- OUTSIDE RECORDS SUMMARY | 2025-03-15 09:11 | XMS_ITS | Clinical Summary ---
Author Organization [facility] Address [address] [address] Care Team Providers Care Piece Work Checker Name Role Phone Unavailable Primary Care Provider Unavailabl e Source Comments [facility],non-owned Affiliates and Associated Physician Practices is amultiple site organization consisting of ambulatory clinics and hospital sitesin [place], [place], [place] and [place]. This disclosure is being madepursuant to the Care Everywhere program and may not contain all information available regarding this patient. Last updated 18.[facility] Allergies No known active allergies Medications * Be aware that medications may not be up to date on this document. Alwaysverify current medications with the patient. Multiple Vitamins-Mineral s (ONE DAILY MENS) TABS Take by mouth once daily Active Potassium 99 MG tablet Take 99 mg by mouth once daily Active Cholecalciferol (VITAMIN D-3 PO) Take by mouth once daily Active Naproxen Sodium (ALEVE) 220 MG Take by mouth once daily as needed Active Social History Tobacco Use Types Packs/Day Years Used Date Smoking Tobacco: Every Day Cigarettes Smokeless Tobacco: Never Alcohol Use Standard Drinks/Week Comments No 0 (1 standard drink = 0.6 oz pur e alcohol) Sex and Gender Information Value Date Recorded Sex Assigned at Not on file Legal Sex Male 10:35 AM CDT Gender Identity Not on file Sexual Orientation Not on file Last Filed Vital Signs Vital Sign Reading Time Taken Comments Blood Pressure 108/71 05/15/2016 10:30 AM CDT Pulse 48 05/15/2016 10:12 AM CDT Temperature 35.8 C (96.5 F) 05/15/2016 10:12 AM CDT Respiratory Rate 16 05/15/2016 10:12 AM CDT Oxygen Saturation 97% 05/15/2016 10:30 AM CDT Inhaled Oxygen Concentration - - Weight 72.6 kg (160 lb) 05/15/2016 8:43 AM CDT Height 170.2 cm (5' 7) 05/15/2016 8:43 AM CDT Body Mass Index 25.06 05/15/2016 8:43 AM CDT Plan of Treatment Health Maintenance Due Date Last Done Comments COLOGUARD (AGES 45-75) - COL ON CA SCREENING 1960 CT COLONOGRAPHY - COLON CA SCREENING 1960 FIT - COLON CA SCREENING 1960 FLEX SIG - COLON CA SCREENING 1960 LIPID TESTING 1960 HIV SCREENING 12/01/1974 HEPATITIS C SCREENING 11/27/1977 DTAP/TDAP/TD VACCINES (1 - Tdap) 12/01/1978 PNEUMOCOCCAL VACCINE 50+ (1 of 1 - PCV) 12/01/2009 ZOSTER VACCINE (1 of 2) 12/01/2009 COLON MONITORING 05/15/2021 05/15/2016, 05/15/2016 Colorectal Cancer Screening 05/15/2021 COVID-19 VACCINE (1 - 2023-2 5 season) 2024 DEPRESSION SCREENING 08/05/2024 AAA SCREENING 12/01/2024 INFLUENZA VACCINE (#1) 2025 COLONOSCOPY - COLON CA SCREENING 05/15/2026 05/15/2016, 05/15/2016 Respiratory Syncytial Virus (RSV) Vaccine Pt: or over 60 yrs (1 - 1-dose 75+ series) 12/01/2034 HEPATITIS B VACCINE Aged Out No longe r eligible based on patient's age to complete this topic HIB VACCINE Aged Out No longer eligi ble based on patient's age to complete this topic HPV VACCINE Aged Out No longer eligi ble based on patient's age to complete this topic MENINGOCOCCAL (Group B) VACCINE SHARED DECISION-MAKING Aged Out No longer eligible based on patient's age to complete this topic MENINGOCOCCAL GROUPS A/C/Y/W VACCINE Aged Out No longer eligible b ased on patient's age to complete this topic Procedures Procedure Name Priority Date/Time Associated Diagnosis Comments ENDOSCOPY, COLON, SCREENING Routine 05/15/2016 9:48 AM CDT from Last 3 Months or Most Recently Relevant to Health Maintenance Results * ENDOSCOPY, COLON, SCREENING (05/15/2016 9:48 AM CDT) Report Endoscopy POC _ Patient Name: Mitchel Walters Procedure Date: 05/15/2016 9:48 AM Date of : 1960 Admit Type: Outpatient Age: 55 Room: ROOM 1 Gender: Male Note Status: Finalized Attending MD: Nasim Raya MD _ Procedure: Colonoscopy Indications: Screening in patient at increased risk: Family history of 1st-degree relative with colorectal cancer Providers: Nasim Raya MD, Day Fitch RN, Kathryn Hutton CRNA (Anesthesia Staff) Referring MD: Jayden Wilson DO (Referring MD) Medicines: Monitored Anesthesia Care Complications: No immediate complications. _ Procedure: Pre-Anesthesia Assessment: - Prior to the procedure, a History and Physical was performed, and patient medications, allergies and sensitivities were reviewed. The patient's tolerance of previous anesthesia was reviewed. - The risks and benefits of the procedure and the sedation options and risks were discussed with the patient. All questions were answered and informed consent was obtained. - Patient identification and proposed procedure were verified prior to the procedure by the physician, the nurse and the brim molder. The procedure was verified in the endoscopy suite. - Pre-procedure physical examination revealed no contraindications to sedation. - ASA Grade Assessment: II - A patient with mild systemic disease. - After reviewing the risks and benefits, the patient was deemed in satisfactory condition to undergo the procedure. - The anesthesia plan was to use monitored anesthesia care (MAC). After I obtained informed consent, the scope was passed under direct vision. Throughout the procedure, the patient's blood pressure, pulse, and oxygen saturations were monitored continuously. The CF-H180AL was introduced through the anus and advanced to the cecum, identified by appendiceal orifice and ileocecal valve. The colonoscopy was performed without difficulty. The patient tolerated the procedure well. The quality of the bowel preparation was good. Findings: The perianal and digital rectal examinations were normal. A 3 mm polyp was found in the ascending colon. The polyp was sessile. The polyp was removed with a cold biopsy forceps. Resection and retrieval were complete. Multiple small-mouthed diverticula were found in the sigmoid colon. Internal hemorrhoids were found during retroflexion. The hemorrhoids were small. _ Impression: - One 3 mm polyp in the ascending colon. Resected and retrieved. - Diverticulosis in the sigmoid colon. - Internal hemorrhoids. Recommendation: - High fiber diet. - Use Benefiber two teaspoons PO BID. - Await pathology results. - Repeat colonoscopy in 5 years for surveillance. Procedure Code(s): --- Professional --- 83634, Colonoscopy, flexible; with biopsy, single or multiple --- Technical --- 10228, Colonoscopy, flexible; with biopsy, single or multiple Diagnosis Code(s): --- Professional --- Z80.0, Family history of malignant neoplasm of digestive organs D12.2, Benign neoplasm of ascending colon K64.8, Other hemorrhoids K57.30, Diverticulosis of large intestine without perforation or abscess without bleeding --- Technical --- Z80.0, Family history of malignant neoplasm of digestive organs D12.2, Benign neoplasm of ascending colon K64.8, Other hemorrhoids K57.30, Diverticulosis of large intestine without perforation or abscess without bleeding CPT copyright 2015 [employer]. All rights reserved. The codes documented in this report are preliminary and upon penal officer review may be revised to meet current compliance requirements. Nasim Raya MD 05/15/2016 10:08:50 AM This report has been signed electronically. Number of Addenda: 0 Note Initiated On: 05/15/2016 9:48 AM Estimated Blood Loss: Estimated blood loss: none. [facility] 05/15/2016 9:48 AM CDT Nasim Raya MD GI PROCEDURE ORDERABLES Edit ed Result - Final [facility] from Last 3 Months or Most Recently Relevant to Health Maintenance Insurance [facility]
--- OUTSIDE RECORDS SUMMARY | 2025-03-15 09:11 | XMS_ITS | Clinical Summary ---
Author Organization [address] Address [address] [place] [id number] Care Team Providers Care Paperboard Box Maker Name Role Phone No, Physician Primary Care Provider [phone] Allergies No known active allergies Medications No known medications Active Problems No known active problems Social History Tobacco Use Types Packs/Day Years Used Date Smoking Tobacco: Never Assessed Sex and Gender Information Value Date Recorded Sex Assigned at Not on file Legal Sex Male 12:00 AM SENIOR FUNCTIONAL ANALYST Gender Identity Not on file Sexual Orientation Not on file Obstetrics History Last Filed Vital Signs Vital Sign Reading Time Taken Comments Blood Pressure 118/69 07/23/2017 6:09 PM SENIOR FUNCTIONAL ANALYST Pulse 72 07/23/2017 6:09 PM SENIOR FUNCTIONAL ANALYST Temperature 36.9 C (98.5 F) 07/23/2017 6:09 PM SENIOR FUNCTIONAL ANALYST Respiratory Rate - - Oxygen Saturation 99% 07/23/2017 6:09 PM SENIOR FUNCTIONAL ANALYST Inhaled Oxygen Concentration - - Weight 79.1 kg (174 lb 4.8 oz) 07/30/2021 1:20 P M SENIOR FUNCTIONAL ANALYST Height 170.2 cm (5' 7) 07/23/2017 6:09 PM SENIOR FUNCTIONAL ANALYST Body Mass Index 27.3 07/23/2017 6:09 PM SENIOR FUNCTIONAL ANALYST Plan of Treatment Not on file Insurance Care Teams Paperboard Box Maker Relationship Specialty Start Date End Date No, Physician PCP - General 07/30/21
--- OUTSIDE RECORDS SUMMARY | 2025-03-15 09:11 | XMS_ITS | Clinical Summary ---
Author Organization [facility] [place] Address [address] [address] Care Team Providers Care Flaker Operator Name Role Phone Jayden Wilson Primary Care Provider Allergies No known active allergies Medications multivitamin (DAILY-OTILIA) tablet Take 1 Tablet by mouth daily. Active Potassium 99 mg Tablet Take by mouth. Active Active Problems Patient Care Coordination No te Formatting of this note migh t be different from the original. INFORMATICA DEVELOPER DR SELVIN RAMOS MD, [facility], [facility] Problem Noted Date Diagnosed Date Arthritis Tobacco abuse Inclusion cyst Hyperlipidemia Family History Medical History Relation Name Comments Parkinson's Disease Father Cancer Mother Relation Name Status Comments Father Mother Social History Tobacco Use Types Packs/Day Years Used Date Smoking Tobacco: Every Day Cigarettes Smokeless Tobacco: Never Alcohol Use Standard Drinks/Week Comments No 0 (1 standard drink = 0.6 oz pur e alcohol) Sex and Gender Information Value Date Recorded Sex Assigned at Not on file Legal Sex Male 11:02 AM CDT Gender Identity Not on file Sexual Orientation Not on file Last Filed Vital Signs Vital Sign Reading Time Taken Comments Blood Pressure 110/78 05/03/2016 1:10 PM CDT Pulse 57 05/03/2016 1:10 PM CDT Temperature - - Respiratory Rate - - Oxygen Saturation 98% 05/03/2016 1:10 PM CDT Inhaled Oxygen Concentration - - Weight 74.4 kg (164 lb) 05/03/2016 1:10 PM CDT Height 170.2 cm (5' 7) 05/03/2016 1:10 PM CDT Body Mass Index 25.69 05/03/2016 1:10 PM CDT Plan of Treatment Health Maintenance Due Date Last Done Comments DTAP/TDAP/TD VACCINES (1 - Tdap) 12/01/1978 COLORECTAL SCREENING 12/01/2004 Colorectal Cancer Screening 12/01/2004 FIT-DNA Q 3 years 12/01/2004 FIT/FOBT Q 1 year 12/01/2004 Flex Sig/CT Colonography Q 5 years 12/01/2004 PNEUMOCOCCAL VACCINE 50+ YEARS (1 of 1 - PCV) 12/02/19 10 ZOSTER VACCINE (1 of 2) 12/01/2009 INFLUENZA VACCINE (#1) 2025 RSV VACCINE (60+ or ) (1 - 1-dose 75+ series) 12/01/2034 Care Teams Flaker Operator Relationship Specialty Start Date End Date Jayden Wilson DO [address] [place] [id number] PCP - General Family Practice 04/24/16
--- OUTSIDE RECORDS SUMMARY | 2025-03-15 09:11 | XMS_ITS | Clinical Summary ---
Author Organization [facility] Care Team Providers Care Logistics Operations Director Name Role Phone Unavailable Primary Care Provider Unavailabl e Social History Tobacco Use Types Packs/Day Years Used Date Smoking Tobacco: Never Assessed Sex and Gender Information Value Date Recorded Sex Assigned at Not on file Legal Sex Male 11:57 PM CDT Gender Identity Not on file Sexual Orientation Not on file Plan of Treatment Health Maintenance Due Date Last Done Comments Hepatitis C Virus (HCV) Screening 1960 Cologuard 12/01/2004 Colonoscopy 12/01/2004 Colorectal Cancer Screening 12/01/2004 Immunochemical Fecal Occult Blood 12/01/2004 Zoster Immunization (1 of 2) 12/01/2009 Pneumococcal Immunization (5 0+ years) (2 of 2 - PCV20 or PCV21) 03/15/2021 03/15/2020 SARS-COV-2 Immunization (1 - season) 2024 Influenza Immunization (#1) 2025 Respiratory Syncytial Virus (RSV) Immunization (Adult) (1 - 1-dose 75+ series) 12/01/2034 Meningococcal Immunization (ACWY) Aged Out 020 No longer eligible based on patient's age to complete this topic Pneumococcal Immunization Combined Discontinued 2019 DTaP/Tdap/Td Immunization Discontinued 04/26/2020 TdaP Immunization Completed 04/26/2020 Hepatitis B Immunization Aged Out No longer eligible based on patient's age to complete this topic Human Papillomavirus (HPV) Immunization Aged Out No longer eligible b ased on patient's age to complete this topic Rotavirus Immunization Aged Out No lo nger eligible based on patient's age to complete this topic
[2025-03-15 09:16] VITALS: BP 113/71; PULSE 67; RESP 16; TEMP 36.6; O2SAT 98
--- NOTE | 2025-03-15 09:25 | ECG_ITS ---
Test Date: 2025-03-15 09:34:02 Measurements Intervals [place] Rate: 63 P: 38 RI: 138 QRS: 53 QRSD: 81 T: 59 QT: 384 QTc: 393 Interpretive Statements SINUS RHYTHM BASELINE ARTIFACT- I, II NORMAL ECG Compared to ECG 04/29/2024 16:05:06 HEART RATE HAS INCREASED Electronically Signed On 03-15-2025 09:40:36 CDT by Thanh Fierro D.O.
[2025-03-15 09:51] LABS: Hematocrit 42.0 % (42.0-52.0); Hemoglobin 14.0 g/dL (14.0-18.0); Immature Granulocyte Percent A 0.1 % (0-0.5); Lymphocytes Absolute Auto 3.65 K/mm3 (0.9-3.2); Mean Corpuscular HGB Conc 33.3 g/dl (32-36); Mean Corpuscular Hemoglobin 31.9 pg (26-34); Mean Corpuscular Volume 95.7 fl (80-100); Nucleated Red Blood Cells Absolute Auto 0.000 K/mm3 (0.0-0.012); Nucleated Red Blood Cells Perc 0.0 % (0.0-0.2); Platelet Count Result 333 k/mm3 (150-375); Red Blood Count 4.39 M/mm3 (4.6-6.20); White Blood Count 7.5 K/mm3 (4.5-10.0)
[2025-03-15 10:03] LABS: INR 1.0; Partial Thromboplastin Time 24.6 Seconds (22.3-36.8); Prothrombin Time 13.7 Seconds (11.1-14.7)
[2025-03-15 10:04] LABS: Alanine Aminotransferase 17 U/L (6-50); Albumin Level 4.2 g/dL (3.5-5.1); Alkaline Phosphatase 64 U/L (38-126); Anion Gap 7 mmol/L (4-12); Aspartate Amino Transferase 31 U/L (17-59); Bilirubin,Total 0.6 mg/dL (0.2-1.3); Blood Urea Nitrogen 17 mg/dL (9-20); Calcium 8.8 mg/dL (8.4-10.2); Carbon Dioxide 21 mmol/L (22-30); Chloride 110 mmol/L (98-107); Estimated CRCL calculation 55 ml/min; Estimated Glomerular Filt Rate > 60; Glucose 103 mg/dL (65-110); Potassium 4.6 mmol/L (3.4-5.0); Sodium 138 mmol/L (137-145); Total Protein 7.9 g/dL (6.3-8.2)
[2025-03-15 10:15] LABS: NT Pro B Type Natriuretic Pept 47 pg/mL (19.9-100); Troponin I < 0.012 ng/mL (0.000-0.034)
[2025-03-15 10:18] VITALS: BP 110/72; PULSE 62; RESP 13; TEMP 36.7; O2SAT 98
[2025-03-15 12:10] LABS: Add Urine Microscopic? YES; Appearance Urine Clear (Clear); Glucose Urine UA Negative (Negative); Leukocyte Esterase Ur Trace LEU/UL (Negative); Nitrate Urine Negative (Negative); Non Pathogenic Casts 0-2; Specific Grav Ur 1.020 (1.001-1.035)
--- NOTE | 2025-03-15 12:20 | ED.GENADULT ---
HPI - General Adult General Chief complaint: Neck Pain/Injury Stated complaint: left shoulder, neck pain, back pain Time Seen by Provider: 03/15/25 12:02 History of Present Illness HPI narrative: 64-year-old male present to the emergency department for evaluation for exertional shortness of breath. 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 Patient states while he is doing having exertion he does have some exertional shortness of breath but denies any associated chest pain. Patient states he does not have any shortness of breath while walking around the house or doing activities that are not strenuous. Patient does describe some tightness of has left lateral neck left shoulder that is worsened with range of movement. Patient states he has had this issue for the last few weeks. Patient states he rarely smokes, does not drink alcohol. Patient denies any prior cardiac history. 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 Patient also has history of hypercholesteremia Related Data Home Medications ?Medication ?Instructions ?Recorded ?Confirmed ?Last Taken ?Type rosuvastatin 5 mg tablet mg 09/14/24 Unknown History tamsulosin 0.4 mg capsule mg PO 09/14/24 Unknown History Allergies Allergy/AdvReac Type Severity Reaction Status Date / Time No Known Allergies Allergy Verified 04/29/24 15:28 Review of Systems Review of Systems: All systems reviewed & are unremarkable except as noted in HPI and below PMFSH Past Medical History Medical History Hypercholesteremia Ruptured spleen Surgical History Surgical History S/P splenectomy Family History Family History Father Cerebrovascular accident, Onset Age: 72 Family history of Parkinson's disease, Onset Age: 72 Patient's father is , Onset Age: 72 Mother Carcinoma of colon Patient's mother is Social History Social History Smoking status: Former smoker Tobacco type: cigarettes Second hand tobacco smoke exposure: No Alcohol intake: never Lack of Transportation: No Lack of Food: Never True Current Housing: I Have Housing Concerned About Future Housing: No Difficulty Paying Gas/Electric Bills: No Difficulty Paying for Meds: No Currently Unemployed: No Education: High School Diploma/GED Difficulty w/ Childcare or Family Care: No Gender identity (if verbalized by the patient): Male Spiritual care concerns: No Exam Narrative: APPEARANCE: Well appearing, no pain, no distress, well-nourished. HEAD: normocephalic, atraumatic. EYES: PERRLA/EOMI, conjunctivae clear. NOSE: Normal no drainage EARS:TMS clear with good light reflex. THROAT: Pharynx clear, no exudate. NECK: Supple. No adenopathy, no masses. RESPIRATORY: Airway patent, respirations nonlabored. Clear to auscultation bilaterally, no rales, rhonchi, wheezing. CARDIOVASCULAR: Regular rate and rhythm without murmurs rubs or gallops. ABDOMINAL: Soft, nontender, nondistended, normal bowel sounds MUSCULOSKELETAL: Tenderness of left trapezius in to left lateral neck NEURO: Alert. Cranial nerves II through XII intact. Good gait. Good coordination SKIN: Warm, dry. Normal Color Course Vital Signs Vital signs: Vital Signs Temperature 97.9 F 03/15/25 09:16 Pulse Rate 67 03/15/25 09:16 Respiratory Rate 16 03/15/25 09:16 Blood Pressure 113/71 03/15/25 09:16 Pulse Oximetry 98 03/15/25 09:16 Oxygen Delivery Room Air 03/15/25 09:16 Temperature 98.1 F 03/15/25 10:18 Pulse Rate 65 03/15/25 13:31 Respiratory Rate 18 03/15/25 13:31 Blood Pressure 108/79 03/15/25 13:31 Pulse Oximetry 97 03/15/25 13:31 Oxygen Delivery Room Air 03/15/25 09:16 Medical Decision Making [facility] Narrative Medical decision making narrative: 64-year-old male presents emergency department for evaluation for exertional shortness of breath. Patient is afebrile leukocytosis hemoglobin of 14.0. INR is 1.0. No significant acute abnormalities on his CMP and patient has a normal troponin and normal proBNP. UA was negative for infection. Shoulder x-ray shows no acute abnormality and chest x-ray does show some left lower lobe atelectasis. CTA was ordered to evaluate for pulmonary embolism. CT a was negative for pulmonary embolism. Patient's left shoulder pain is consistent with trapezius muscular strain. Differential Diagnosis Differential Diagnosis: Trapezius strain, torticollis, pulmonary embolism, ACS Vital Signs Vital Signs: Vital Signs Temperature 97.9 F 03/15/25 09:16 Pulse Rate 67 03/15/25 09:16 Respiratory Rate 16 03/15/25 09:16 Blood Pressure 113/71 03/15/25 09:16 Pulse Oximetry 98 03/15/25 09:16 Oxygen Delivery Room Air 03/15/25 09:16 Temperature 98.1 F 03/15/25 10:18 Pulse Rate 65 03/15/25 13:31 Respiratory Rate 18 03/15/25 13:31 Blood Pressure 108/79 03/15/25 13:31 Pulse Oximetry 97 03/15/25 13:31 Oxygen Delivery Room Air 03/15/25 09:16 Lab Data Lab results reviewed: Yes I reviewed the patient's lab results. 03/15/25 09:39 03/15/25 09:39 Labs: Lab Results 03/15/25 03/15/25 Range/Units 09:39 11:48 WBC 7.5 (4.5-10.0) K/mm3 RBC 4.39 L (4.6-6.20) M/mm3 Hgb 14.0 (14.0-18.0) g/dL Hct 42.0 (42.0-52.0) % MCV 95.7 (80-100) fl MCH 31.9 (26-34) pg MCHC 33.3 (32-36) g/dl RDW 14.4 (11.5-14.5) % Plt Count 333 (150-375) k/mm3 MPV 10.0 (7.4-10.4) fl Immature Gran % (Auto) 0.1 (0-0.5) % Neut % (Auto) 36.4 L (45.5-73.1) % Lymph % (Auto) 49.0 H (18.3-44.2) % Bowman % (Auto) 9.4 H (2.6-8.5) % Eos % (Auto) 4.6 H (0-4.4) % Baso % (Auto) 0.5 (0.2-1.2) % Lymph # (Auto) 3.65 H (0.9-3.2) K/mm3 Bowman # (Auto) 0.7 H (0.1-0.6) K/mm3 Eos # (Auto) 0.3 (0-0.3) K/mm3 Baso # (Auto) 0.0 (0.0-0.1) K/mm3 Abs Immat Gran (auto) 0.01 (0.00-0.031) K/mm3 Absolute Neuts (auto) 2.7 (1.3-6.7) K/mm3 Absolute Nucleated RBC 0.000 (0.0-0.012) K/mm3 Nucleated RBC % 0.0 (0.0-0.2) % PT 13.7 (11.1-14.7) Seconds INR 1.0 APTT 24.6 (22.3-36.8) Seconds Sodium 138 (137-145) mmol/L Potassium 4.6 (3.4-5.0) mmol/L Chloride 110 H (98-107) mmol/L Carbon Dioxide 21 L (22-30) mmol/L Anion Gap 7 (4-12) mmol/L BUN 17 (9-20) mg/dL Creatinine 1.16 (0.7-1.3) mg/dL Estim Creat Clear Calc 55 ml/min Estimated GFR > 60 (59 - ) Glucose 103 (65-110) mg/dL Calcium 8.8 (8.4-10.2) mg/dL Total Bilirubin 0.6 (0.2-1.3) mg/dL AST 31 (17-59) U/L ALT 17 (6-50) U/L Alkaline Phosphatase 64 (38-126) U/L Troponin I < 0.012 (0.000-0.034) ng/mL NT-Pro-B Natriuret Pep 47 (19.9-100) pg/mL Total Protein 7.9 (6.3-8.2) g/dL Albumin 4.2 (3.5-5.1) g/dL Urine Color Yellow (Yellow) Urine Appearance Clear (Clear) Urine pH 5.5 (5.0-9.0) Ur Specific [place] 1.020 (1.001-1.035) Urine Protein Trace (Negative) mg/dL Urine Glucose (UA) Negative (Negative) mg/dL Urine Ketones Trace H (Negative) mg/dL Ur Blood (Man) Negative (Negative) Urine Nitrate Negative (Negative) Urine Bilirubin Negative (Negative) Urine Urobilinogen 1.0 (<2.0) mg/dL Leukocyte Esterase Rfl Trace H (Negative) JUANITA/UL Urine RBC 0-2 (0-2) /hpf Urine WBC 0-5 (0-3) /hpf Ur Squamous Epith Cells None seen (Few) /hpf Urine Bacteria None seen /hpf Urine Casts 0-2 Imaging Data Radiologist's impression: Impressions Shoulder X-Ray 03/15/25 10:04 IMPRESSION: 1: NO ACUTE BONE OR JOINT ABNORMALITY IDENTIFIED. Chest X-Ray 03/15/25 10:07 Impression: 1: Left lower lobe atelectasis. Chest CTA 03/15/25 12:36 IMPRESSION: 1. No evidence for pulmonary embolism. 2: Left lower lobe atelectasis. Discharge Plan Discharge Clinical Impression: Strain of left trapezius muscle, Exertional dyspnea Patient Disposition: Home Condition: Stable Instructions: Antibiotic Form, Muscle Strain (ED), Dyspnea (ED) Additional Instructions: Tylenol and ibuprofen for left shoulder pain, Flexeril for muscle spasm. Have close follow-up with your primary care physician for additional outpatient cardiac testing. Worsening symptoms then please call or return to the emergency department. Patient Language: Brazilian Prescriptions: New cyclobenzaprine 10 mg tablet 10 mg PO BID PRN (Reason: muscle spasm) Qty: 14 0RF No Action tamsulosin 0.4 mg capsule PO rosuvastatin 5 mg tablet Follow-up/Referrals: Serge,DO Prieto [Primary Care Provider] -
--- OUTSIDE RECORDS SUMMARY | 2025-03-15 13:26 | XMS_ITS | Clinical Summary ---
Author Organization [facility] Care Team Providers Care Tea Room Manager Name Role Phone Unavailable Primary Care Provider [...]
--- OUTSIDE RECORDS SUMMARY | 2025-03-15 13:26 | XMS_ITS | Encounter Summary ---
Author Organization [facility] Address [address] [place] [id number] Care Team Providers Care Automation Technologist Name Role Phone Serge Prieto Mario DONALDSON Primary Care Provider + Ward Polanco MD Unavailable [phone] Encounter Details Date Type Department Care Team (Late st Contact Info) Description 04/12/2021 Prep for Procedure [facility] [place] [place] [id number] James Singh MD [address] [facility] [address] [place], [place] [id number] Social History Tobacco Use Types Packs/Day Years Used Date Smoking Tobacco: Former Cigarettes 0.3 40 0 01/13/2020 - 02/14/2021 Smokeless Tobacco: Never Alcohol Use Standard Drinks/Week Comments No 0 (1 standard drink = 0.6 oz pur e alcohol) AUDIT-C Answer Date Recorded Frequency of Alcohol Consumption Never 01/22/2019 Average Number of Drinks Not on file 019 Frequency of Binge Drinking Not on file 01/04 PHQ-2 Answer Date Recorded PHQ-2 Score - If the patient scores above 3, please move on to questions 3-9 0 12/28/2020 Sex and Gender Information Value Date Recorded Sex Assigned at Male 11/03/2024 11:13 AM CDT Legal Sex Male 6:10 PM CDT Gender Identity Male 11/03/2024 11:13 AM CDT Sexual Orientation Straight 11/03/2024 11 :13 AM CDT Occupation Industry Job Start Date Job End Date Not on file Not on file Not on file Not on file documented as of this encounter Plan of Treatment Upcoming Encounters Date Type Department Care Team (Late st Contact Info) Description 05/11/2025 10:20 AM CDT Office Visit [facility] Internal [facility] [address] [place] [phone] Prieto Valentine, DO [address] [place] [address] documented as of this encounter Results * CORONAVIRUS (COVID 19) (04/14/2021 9:20 AM CDT) SPEC DESCRIPTION NASAL 04/14/20 9:20 AM CDT [facility] CORONAVIRUS SARS COV 2 PCR (RESP) NEGATIVE NEGATIVE 04/14/2021 8:08 PM CDT [facility] () [facility] Comment: THE SARS-CoV-2 TEST HAS BEEN AUTHORIZED BY THE FDA UNDER AN EUA FOR USE BY AUTHORIZED LABORATORIES. PERFORMED BY NUCLEIC ACID AMPLIFICATION PCR FIRST TEST UNKNOWN 04/14/2021 9:20 AM CDT [facility] EMPLOYED IN HEALTHCARE NO 04/14/2021 9:20 AM CDT [facility] SYMPTOMATIC DEFINED BY CDC UNKNOWN 04/14/2021 9:20 AM CDT [facility] HOSPITALIZATION STATUS UNKNOWN 04/14/2021 9:20 AM CDT [facility] PATIENT IN ICU UNKNOWN 04/14/2021 9:20 AM CDT [facility] RESIDENT OF [facility] NO 04/14/2021 9:20 AM CDT 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
--- OUTSIDE RECORDS SUMMARY | 2025-03-15 13:26 | XMS_ITS | Clinical Summary ---
Author Organization [facility] Address [address] [place] [address] Care Team Providers Care Edge Grinder Name Role Phone SergeBijan Mario DONALDSON Primary Care Provider + Ward Polanco MD Unavailable [phone] Allergies No known active allergies Medications rosuvastatin (CRESTOR) 5 MG tabletIndications:H yperlipidemia, unspecified hyperlipidemia type Take 1 tablet (5 mg total) by mouth nightly at bedtime. 90 tablet 1 5 Active tamsulosin (FLOMAX) 0.4 MG CapIndications:Brant gn prostatic hyperplasia with nocturia Take 1 capsule (0.4 mg total) by mouth daily. 30 capsule 2 5 Active meloxicam (MOBIC) 15 MG tabletIndications:C hronic bilateral low back pain with bilateral sciatica Take 1 tablet (15 mg total) by mouth daily. 90 tablet 1 5 Active cyclobenzaprine (FLEXERIL) 10 MG tabletIndications:A rthritis Take 1 tablet (10 mg total) by mouth 3 (three) times daily as needed for Muscle Spasms. 90 tablet 2 5 Active Active Problems Problem Noted Date Diagnosed Date History of colon polyps 07/09/2024 Family history of colon cancer in mother 024 Melena 03/06/2021 Overview (03/06/2021): Added automatically from request for surgery [id number] Depression with anxiety 03/15/2020 History of asplenia 03/15/2020 Shortness of breath 05/07/2019 Arthritis 01/22/2019 Hyperlipidemia 01/22/2019 Cigarette nicotine dependence in remission 01/22 Disorder of inguinal region 04/17/2016 Anal itching 03/14/2016 Chest pain 03/14/2016 Epidermoid cyst 03/14/2016 Shoulder pain, bilateral 03/14/2016 Blepharitis 03/21/2015 Internal hordeolum 03/21/2015 Iridocyclitis 03/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 Pterygium 03/21/2015 CAD (coronary artery disease) Resolved Problems Problem Noted Date Diagnosed Date Resolved Date Screening for colon cancer 07/09/2024 1 09/13/2023 Screening for colon cancer 07/09/2024 0 11/23/2024 Screening for colon cancer 07/09/2024 0 11/30/2024 Encounters Date Type Department Care Team Description 12/29/2024 Results Follow-Up [facility] [place] [address] James Singh MD Pathology 12/21/2024 Telephone [facility] Family & Internal Medicine [address] [address] Bijan Márquez P, DO Question from Last 3 Months Immunizations Immunization Administration Dates Next Due Fluzone (IIV3, Trivalent, 0. 5 ML Prefilled Syringe) 05/04/2024 Fluzone 6 Months+ Quad (0.5 mL Prefilled Syringe) 07/03/2023,06/12/2022 MMR (MMRII) 04/26/2020 Meningcoccal Group B (Trumen ba)(aka Meningitis) 07/09/2024,07/03/2023,04/26/2020,03/15 Meningococcal (MenQuadfi) 07/03/2023 Meningococcal (Menactra) 03/15/2020 PFIZER COVID-19 (12+) MRNA, LNP-S, PF, KYLAH-SUCROSE, 30 MCG/0.3 ML (COMIRNATY) 05/04/2024 Pneumococcal (Pneumovax 23) 01/21/2015 Pneumococcal (Prevnar 13) 03/15/2020 Pneumococcal (Prevnar 20) 06/12/2022 Tdap (Generic) 01/21/2015 Tdap (Historical Only-select from magnify glass) 04/26/2020 Family History Medical History Relation Comments Parkinson's Disease Father Cancer Mother colon Relation Status Comments Father Mother Social History Tobacco Use Types Packs/Day Years Used Date Smoking Tobacco: Some Days Cigarettes 0.5 41 Started: 04/02/1982; Last attempted to quit: 04/02/2023 Smokeless Tobacco: Former Tobacco Cessation:Counseling Given: No Alcohol Use Standard Drinks/Week Comments No 0 (1 standard drink = 0.6 oz pur e alcohol) AUDIT-C Answer Date Recorded Frequency of Alcohol Consumption Never 01/22/2019 Average Number of Drinks Not on file 019 Frequency of Binge Drinking Not on file 01/04 PHQ-2 Answer Date Recorded Patient Health Questionnaire-2 Score 0 11/03/2024 Sex and Gender Information Value Date Recorded Sex Assigned at Male 11/03/2024 11:13 AM CDT Legal Sex Male 6:10 PM CDT Gender Identity Male 11/03/2024 11:13 AM CDT Sexual Orientation Straight 11/03/2024 11 :13 AM CDT Occupation Industry Job Start Date Job End Date Not on file Not on file Not on file Not on file Last Filed Vital Signs Vital Sign Reading Time Taken Comments Blood Pressure 106/76 12/08/2024 1:21 PM CDT Pulse 60 12/08/2024 1:21 PM CDT Temperature 36 C (96.8 F) 12/08/2024 11:10 AM CDT Respiratory Rate 13 12/08/2024 1:21 PM CDT Oxygen Saturation 99% 12/08/2024 1:21 PM CDT Inhaled Oxygen Concentration - - Weight 81.6 kg (180 lb) 12/03/2024 1:20 PM CDT Height 172.7 cm (5' 8) 12/03/2024 1:20 PM CDT Body Mass Index 27.37 12/03/2024 1:20 PM CDT Plan of Treatment Upcoming Encounters Date Type Department Care Team (Late st Contact Info) Description 05/11/2025 10:20 AM CDT Office Visit [facility] Family & Internal Medicine - [address] [address] Bijan Márquez, [facility] [place] [address] Health Maintenance Due Date Last Done Comments Zoster Vaccines (1 of 2) 12/01/2009 RSV Immunization or 60+ Years (1 - Risk 60-74 years 1-dose series) 2019 Lung Cancer Screening 07/27/2024 07/27/2023, 017 AAA SCREENING 12/01/2024 07/23/2017, 05/16/2017 COVID-19 Vaccine (2 - season) 2024 05/04/2024 Meningococcal B Vaccine (5 of 5 - Increased Risk Trumenba 3-dose series) 07/09/2026 07/09/2024, 07/03/2023, 04/26/2020, Additional history exists Meningococcal Vaccine (3 - Risk 2-dose series) 07/03/2028 07/03/2023, 03/15/2020 DTaP, Tdap and Td Vaccines (3 - Td or Tdap) 04/26/2030 04/26/2020, 01/21/2015 Colorectal Cancer Screening Colonoscopy (10 Years) 12/08/2034 12/08/2024, 12/07/2024, 05/15/2016 Pneumococcal Vaccine: 50+ Years Completed 06/12/2022, 03/15/2020, 01/21/2015 Hepatitis C Completed 05/04/2024 PHQ-2 (Physician [place]) Completed 11/03/2024 RSV Immunizations Under 20 Months Aged Out No longer eligible based on patient's age to complete this topic Procedures Procedure Name Priority Date/Time Associated Diagnosis Comments HEPATITIS C ANTIBODY Routine 05/04/2024 11:56 AM CDT Encounter for preventative adult health care examination Screening for lipid disorders Screening for endocrine, metabolic and immunity disorder Screening for prostate cancer Need for hepatitis C screening test CT LUNG SCREENING Routine 07/27/2023 2:0 5 PM BEAD PREPARER Nicotine dependence, cigarettes, in remission COLONOSCOPY Routine 05/15/2016 12:00 AM CDT from Last 3 Months or Most Recently Relevant to Health Maintenance Results * HEPATITIS C ANTIBODY (05/04/2024 11:56 AM CDT) HEPATITIS C AB NON-REACTI VE NON-REACT AVA 05/05/2024 7:16 PM CDT [facility] Comment: ANTIBODIES TO HCV NOT DETECTED. DOES NOT EXCLUDE THE POSSIBILITY OF EXPOSURE TO HCV. 05/04/2024 11:5 6 AM CDT Bijan Márquez DO LABORATORY Final Re sult [facility] [address] [place] [address], [id number] * CT LUNG SCREENING (07/27/2023 2:05 PM BEAD PREPARER) Anatomical Region Laterality Modality Chest Computed Tomogra phy 08/04/2023 11:3 7 AM BEAD PREPARER Impressions 08/04/2023 11:41 AM BEAD PREPARER IMPRESSION: 1. Lung-RADS Category 2: Benign appearance or behavior. Nodules with a very low likelihood of becoming a clinically active cancer due to size or lack of growth. 2. LUNG-RADS category S: Negative, no new/unknown potentially significant incidental findings requiring urgent additional evaluation. 3. Other incidental findings as above. RECOMMENDATIONS: Follow-up LDCT Chest in 12 months (on or around 07/27/2024). Referred By: BIJAN MÁRQUEZ Interpreted By: Farhat Morrissey MD, 08/04/2023 11:37 AM Narrative 08/04/2023 11:41 AM BEAD PREPARER EXAM: LUNG SCREENING LOW-DOSE CT THORAX WITHOUT CONTRAST DATE: 07/27/2023 HISTORY: Asymptomatic patient meeting NCCN high-risk criteria for lung screening. COMPARISON: None TECHNIQUE: Noncontrast, helical, low-dose CT (LDCT) chest per standard departmental protocol. Automated exposure control was utilized for dose reduction. FINDINGS: Lung Screening Specific (LUNG-RADS): 4 mm nodule of the left upper lobe axial image 89. This is new. Lung RADS 2. Potentially Significant Incidentals (LUNG-RADS category S): None. Pulmonary Incidentals: Mild upper lobe predominant centrilobular and paraseptal emphysema. Scattered subsegmental atelectasis likely related to postinflammatory change nonspecific. Other Incidentals: Atherosclerosis. Calcified granulomas indicate healed granulomatous disease. Bilateral gynecomastia. Degenerative changes of the spine. Procedure Note Farhat Morrissey MD - 08/04/2023 EXAM: LUNG SCREENING LOW-DOSE CT THORAX WITHOUT CONTRAST DATE: 07/27/2023 HISTORY: Asymptomatic patient meeting NCCN high-risk criteria for lungscreening. COMPARISON: None TECHNIQUE: Noncontrast, helical, low-dose CT (LDCT) chest per standarddepartmental protocol. Automated exposure control was utilized for dosereduction. FINDINGS: Lung Screening Specific (LUNG-RADS): 4 mm nodule of the left upper lobe axial image 89. This is new. LungRADS 2. Potentially Significant Incidentals (LUNG-RADS category S): None. Pulmonary Incidentals: Mild upper lobe predominant centrilobular andparaseptal emphysema. Scattered subsegmental atelectasis likely relatedto postinflammatory change nonspecific. Other Incidentals: Atherosclerosis. Calcified granulomas indicate healedgranulomatous disease. Bilateral gynecomastia. Degenerative changes of the spine. IMPRESSION: 1. Lung-RADS Category 2: Benign appearance or behavior. Nodules with deanna low likelihood of becoming a clinically active cancer due to size orlack of growth. 2. LUNG-RADS category S: Negative, no new/unknown potentially significantincidental findings requiring urgent additional evaluation. 3. Other incidental findings as above. RECOMMENDATIONS: Follow-up LDCT Chest in 12 months (on or [id number]/2024). Referred By: BIJAN MÁRQUEZ Interpreted By: Farhat Morrissey MD, 08/04/2023 11:37 AM us Bijan Márquez DO CT Final Re sult * Colonoscopy (05/15/2016 12:00 AM CDT) 05/15/2016 05/15/2016 Narrative [facility] TO EPIC CONVERSION - 05/15/2016 12:00 AM CDT Documented hx of procedure Procedure Note Cecil Sweeney MD - 06/08/2018 Documented hx of procedure us Generic Conversion Md [facility] PROCEDURE ORDERABLES Final Result [facility] TO EPIC CONVERSION from Last 3 Months or Most Recently Relevant to Health Maintenance Insurance MEDICAID DEPT OF [address] MEDICAID Care Teams Edge Grinder Relationship Specialty Start Date End Date Bijan Márquez DO [address] [place] [id number] PCP - General FAMILY PRACTICE 01/22/19 Ward Polanco MD [address] [place] [id number] Christina Farm Equipment Assembler INTERVENTIONAL CARDIOLOGY 02/02/19
--- OUTSIDE RECORDS SUMMARY | 2025-03-15 13:26 | XMS_ITS | Clinical Summary ---
Author Organization [facility] Address [address] [place] [address] Care Team Providers Care Household Appliances Service Technician Name Role Phone Unavailable Primary Care Provider Unavailabl e Source Comments [facility],non-owned Affiliates and Associated Physician Practices is amultiple site organization consisting of ambulatory clinics and hospital sitesin [place], [place], [place] and [place]. This disclosure is being madepursuant to the Care Everywhere program and may not contain all information available regarding this patient. Last updated 18.[facility] Allergies No known active allergies Medications * [...] by the physician, the nurse and the recovery operator helper. The procedure was verified in the endoscopy [...] for surveillance. Procedure Code(s): --- Professional --- 91298, Colonoscopy, flexible; with biopsy, single or multiple --- Technical --- 93223, Colonoscopy, flexible; with biopsy, single or multiple [...] or abscess without bleeding CPT copyright 2015 [employer]. All rights reserved. The codes documented in this report are preliminary and upon quality nurse review may be revised to meet current compliance requirements. Nasim Raya MD 05/15/2016 10:08:50 AM This report has been signed electronically. Number of Addenda: 0 Note Initiated On: 05/15/2016 9:48 AM Estimated Blood Loss: Estimated blood loss: none. [facility] ENDOSCOPY 05/15/2016 9:48 AM CDT Nasim Raya MD GI PROCEDURE ORDERABLES Edit ed Result - Final [facility] ENDOSCOPY from Last 3 Months or Most Recently Relevant to Health Maintenance Insurance [facility]
--- OUTSIDE RECORDS SUMMARY | 2025-03-15 13:26 | XMS_ITS | Clinical Summary ---
Author Organization [facility] [place] Address [address] [address] Care Team Providers Care Mold Inspector Name Role Phone Jayden Wilson Primary Care Provider Allergies No known active allergies Medications multivitamin (DAILY-OTILIA) tablet Take 1 Tablet by mouth daily. Active Potassium 99 mg Tablet Take by mouth. Active Active Problems Patient Care Coordination No te Formatting of this note migh t be different from the original. CORN HUSK BALER DR SELVIN RAMOS MD, [facility], [facility] Problem Noted Date Diagnosed Date [...] - 1-dose 75+ series) 12/01/2034 Care Teams Mold Inspector Relationship Specialty Start Date End Date Jayden Wilson DO [address] [place] [id number] PCP - General Family Practice 04/24/16
--- OUTSIDE RECORDS SUMMARY | 2025-03-15 13:26 | XMS_ITS | Clinical Summary ---
Author Organization [address] Address [address] [place] [address] Care Team Providers Care Bundle Shaker Name Role Phone No, Physician Primary Care Provider [phone] Allergies No known active allergies Medications No known medications Active Problems No known active problems Social History Tobacco Use Types Packs/Day Years Used Date Smoking Tobacco: Never Assessed Sex and Gender Information Value Date Recorded Sex Assigned at Not on file Legal Sex Male 12:00 AM GEAR GRINDER Gender Identity Not on file Sexual Orientation Not on file Obstetrics History Last Filed Vital Signs Vital Sign Reading Time Taken Comments Blood Pressure 118/69 07/23/2017 6:09 PM GEAR GRINDER Pulse 72 07/23/2017 6:09 PM GEAR GRINDER Temperature 36.9 C (98.5 F) 07/23/2017 6:09 PM GEAR GRINDER Respiratory Rate - - Oxygen Saturation 99% 07/23/2017 6:09 PM GEAR GRINDER Inhaled Oxygen Concentration - - Weight 79.1 kg (174 lb 4.8 oz) 07/30/2021 1:20 P M GEAR GRINDER Height 170.2 cm (5' 7) 07/23/2017 6:09 PM GEAR GRINDER Body Mass Index 27.3 07/23/2017 6:09 PM GEAR GRINDER Plan of Treatment Not on file Insurance Care Teams Bundle Shaker Relationship Specialty Start Date End Date No, Physician PCP - General 07/30/21
[2025-03-15 13:31] VITALS: BP 108/79; PULSE 65; RESP 18; O2SAT 97
== END 2025-03-15 13:32 | disposition home or self-care (01) ==
PROVIDERS: Emergency Medicine; Emergency Provider Emergency Medicine; PCP Student in an Organized Health Care Education/Training Program
DX: R06.00 Dyspnea, unspecified (principal); S46.812A Strain of other muscles, fascia and tendons at shoulder and upper arm level, left arm, initial encounter; E78.00 Pure hypercholesterolemia, unspecified; Z87.891 Personal history of nicotine dependence; Z90.81 Acquired absence of spleen; X58.XXXA Exposure to other specified factors, initial encounter; Y93.H2 Activity, gardening and landscaping
CPT/HCPCS: 36415; 71046; 71275; 73030; 80053; 81001; 83880; 84484; 85025; 85610; 85730; 93005; 99284; Q9967

== ENCOUNTER 2025-07-26 11:33 | Emergency (ER) | payer MEDICARE, MEDICAID, SELFPAY ==
[2025-07-26 11:36] VITALS: BP 129/90; PULSE 73; RESP 18; TEMP 36.3; O2SAT 99
--- NOTE | 2025-07-26 12:25 | ED_ITS ---
HPI - Back Pain/Injury General Chief Complaint: Back Pain/Injury Stated Complaint: lower back pain Time Seen by Provider: 07/26/25 12:03 Source: patient Mode of arrival: ambulatory Limitations: no limitations History of Present Illness HPI Narrative: This is a 64-year-old male with history of hyperlipidemia who presents to the ED for low back pain. Patient states over the past couple weeks, he has been having left lower lumbar back pain but this morning he woke up and had right- sided back pain as well. He had difficulty getting dressed after taking a shower prompting him to come to the ED. Denies urinary symptoms, numbness, tingling. No known injuries. Related Data Home Medications ?Medication ?Instructions ?Recorded ?Confirmed ?Last Taken ?Type rosuvastatin 5 mg tablet mg 09/14/24 Unknown History tamsulosin 0.4 mg capsule mg PO 09/14/24 Unknown Hist ory Allergies Allergy/AdvReac Type Severity Reaction Status Date / Time No Known Allergies Allergy Verified 04/29/24 15:28 Review of Systems Review of Systems: All systems reviewed & are unremarkable except as noted in HPI and below PMFSH Past Medical History Medical History Hypercholesteremia Ruptured spleen Surgical History Surgical History S/P splenectomy Family History Family History Father Cerebrovascular accident, Onset Age: 72 Family history of Parkinson's disease, Onset Age: 72 Patient's father is , Onset Age: 72 Mother Carcinoma of colon Patient's mother is Social History Social History Smoking status: Former smoker Tobacco type: cigarettes Second hand tobacco smoke exposure: No Alcohol intake: never Lack of Transportation: No Lack of Food: Never True Current Housing: I Have Housing Concerned About Future Housing: No Difficulty Paying Gas/Electric Bills: No Difficulty Paying for Meds: No Currently Unemployed: No Education: High School Diploma/GED Difficulty w/ Childcare or Family Care: No Gender identity (if verbalized by the patient): Male Spiritual care concerns: No Exam Narrative: APPEARANCE: No acute distress, nontoxic, resting in bed HEENT: Normocephalic, atraumatic, OMM RESPIRATORY: No respiratory distress CARDIOVASCULAR: Appears well perfused ABDOMINAL: Nondistended MUSCULOSKELETAl: Moves all extremities. No obvious deformities NEURO: Awake and alert. SKIN:: Warm, dry. Minimal tenderness palpation over the bilateral lower lumbar paraspinal musculature, no CVA tenderness PSYCHIATRIC: Normal affect/mood, Course Vital Signs Vital signs: Vital Signs Temperature 97.4 F L 07/26/25 11:36 Pulse Rate 73 07/26/25 11:36 Respiratory Rate 18 07/26/25 11:36 Blood Pressure 129/90 07/26/25 11:36 Pulse Oximetry 99 07/26/25 11:36 Oxygen Delivery Room Air 07/26/25 11:36 Temperature 97.4 F L 07/26/25 11:36 Pulse Rate 60 07/26/25 13:39 Respiratory Rate 18 07/26/25 13:39 Blood Pressure 139/78 07/26/25 13:39 Pulse Oximetry 97 07/26/25 13:39 Oxygen Delivery Room Air 07/26/25 11:36 MDM MDM Narrative Medical decision making narrative: 64-year-old male Presenting for bilateral low back pain. On initial evaluation patient was in no acute distress afebrile, hemodynamic stable. Differentials include but are not limited to: Musculoskeletal pain, musculoskeletal strain/spasm from low suspicion for cauda equina/epidural abscess Notable exam findings: Mild tenderness over the bilateral lower lumbar darius stanley musculature without CVA tenderness Patient?s pain is positional and localized to back without signs of cord compression or cauda equina. Normal neurologic exams. No fever noted and no significant risk factors for osteomyelitis or spinal epidural abscess. No symptoms or signs to suggest pain is referred from abdominal or source. There are no pulsatile masses to exam. Patient ambulates with a steady gait and is felt to be up reasonable candidate for continued outpatient management. Patient was deemed appropriate for discharge at this time. Patient was given a prescription for Flexeril, Lidoderm. Patient was advised follow-up with their PCP in the next week for re-evaluation. Patient was agreeable to this plan. Given strict return precautions. Differential Diagnosis Differential Diagnosis: Musculoskeletal pain, musculoskeletal strain/spasm from low suspicion for cauda equina/epidural abscess Discharge Plan Discharge Clinical Impression: Low back pain Qualifiers: Chronicity: acute Back pain laterality: bilateral Sciatica presence: without sciatica Qualified Code(s): M54.50 - Low back pain, unspecified Patient Disposition: Home Condition: Stable Instructions: Antibiotic Form, Acute Low Back Pain (ED) Additional Instructions: You likely have a musculoskeletal strain of your low back muscles. Your given prescriptions for Flexeril and Lidoderm, take these as prescribed. You may also take Tylenol and ibuprofen for the pain. Follow-up with your PCP in the next week for re-evaluation. Return to the ED for any new or worsening symptoms. For pain, discomfort or temperature greater than or equal to 100.8 ?F please alternate the following 2 medications as needed. First medication- acetaminophen/Tylenol- 1000mg every 6-8 hours as needed for above indications. Second medication- ibuprofen/Motrin-600mg every 6-8 hours as needed for above indication. Patient Language: Romanian Prescriptions: New cyclobenzaprine 10 mg tablet 10 mg PO HS PRN (Reason: muscle spasm) Qty: 30 0RF lidocaine [Lidoderm] 5 % adhesive patch,medicated 1 patch topical DAILY Qty: 15 0RF Rx Instructions: leave on most painful area for up to 12 hrs No Action tamsulosin 0.4 mg capsule PO rosuvastatin 5 mg tablet cyclobenzaprine 10 mg tablet 10 mg PO BID PRN (Reason: muscle spasm) Qty: 14 0RF Follow-up/Referrals: Serge,DO Prieto [Primary Care Provider]
[2025-07-26] MEDS: LIDOCAINE 5% PATCH 1 PATCH TRANSDERM (12:35)
[2025-07-26] MEDS: CYCLOBENZAPRINE HCL 10 MG TABLET PO (12:36)
[2025-07-26] MEDS: KETOROLAC 30 MG/ML VIAL (*BKC) IM (12:36)
--- OUTSIDE RECORDS SUMMARY | 2025-07-26 13:25 | XMS_ITS | Clinical Summary ---
Author Organization [facility] Care Team Providers Care Community Organization Aide Name Role Phone Unavailable Primary Care Provider [...] 2 - PCV20 or PCV21) 03/15/2021 03/15/2020 Influenza Immunization (#1) 2025 SARS-COV-2 Immunization ( - season) 2025 Respiratory Syncytial Virus (RSV) Immunization (Adult) [...]
--- OUTSIDE RECORDS SUMMARY | 2025-07-26 13:25 | XMS_ITS | Clinical Summary ---
Author Organization [facility] [employer] Address [address] [place] [address] Care Team Providers Care Shipmaster Name Role Phone Unavailable Primary Care Provider Unavailabl e Source Comments [facility] [employer],non-owned Affiliates and Associated Physician Practices is amultiple site organization consisting of ambulatory clinics and hospital sitesin [place], [place], [place] and [place]. This disclosure is being madepursuant to the Care Everywhere program and may not contain all information available regarding this patient. Last updated 18.[employer] Allergies No known active allergies Medications * [...] 05/15/2021 05/15/2016, 05/15/2016 Colorectal Cancer Screening 05/15/2021 DEPRESSION SCREENING 08/05/2024 AAA SCREENING 12/01/2024 COVID-19 VACCINE (1 - 2024-2 6 season) 2025 INFLUENZA VACCINE (#1) 2025 COLONOSCOPY - COLON [...] by the physician, the nurse and the yeast washer. The procedure was verified in the endoscopy [...] for surveillance. Procedure Code(s): --- Professional --- 17745, Colonoscopy, flexible; with biopsy, single or multiple --- Technical --- 28148, Colonoscopy, flexible; with biopsy, single or multiple [...] or abscess without bleeding CPT copyright 2015 [employer]. All rights reserved. The codes documented in this report are preliminary and upon policewoman review may be revised to meet current compliance requirements. Nasim Raya MD 05/15/2016 10:08:50 AM This report has been signed electronically. Number of Addenda: 0 Note Initiated On: 05/15/2016 9:48 AM Estimated Blood Loss: Estimated blood loss: none. [facility] 05/15/2016 9:48 AM CDT Nasim Raya MD GI PROCEDURE ORDERABLES Edit ed Result - Final [facility] from Last 3 Months or Most Recently Relevant to Health Maintenance Insurance [facility]
--- OUTSIDE RECORDS SUMMARY | 2025-07-26 13:25 | XMS_ITS | Clinical Summary ---
Author Organization [facility] [place] Address [address] [address] Care Team Providers Care Software Support Representative Name Role Phone Jayden Wilson DO Primary Care Provider Allergies No known active allergies Medications multivitamin (DAILY-OTILIA) tablet Take 1 Tablet by mouth daily. Active Potassium 99 mg Tablet Take by mouth. Active Active Problems Patient Care Coordination No te Formatting of this note migh t be different from the original. FLYING I INSTRUCTOR DR SELVIN RAMOS MD, [facility] Problem Noted Date Diagnosed Date Arthritis Tobacco [...] - 1-dose 75+ series) 12/01/2034 Care Teams Software Support Representative Relationship Specialty Start Date End Date Jayden Wilson DO [address] [place] [phone] PCP - General Family Practice 04/24/16
--- OUTSIDE RECORDS SUMMARY | 2025-07-26 13:25 | XMS_ITS | Clinical Summary ---
Author Organization [address] Address [address] [place] [phone] Care Team Providers Care Street Light Mechanic Name Role Phone No, Physician Primary Care Provider [phone] Allergies No known active allergies Medications No known medications Active Problems No known active problems Social History Tobacco Use Types Packs/Day Years Used Date Smoking Tobacco: Never Assessed Sex and Gender Information Value Date Recorded Sex Assigned at Not on file Legal Sex Male 12:00 AM VULCAN CREWMEMBER Gender Identity Not on file Sexual Orientation Not on file Last Filed Vital Signs Vital Sign Reading Time Taken Comments Blood Pressure 118/69 07/23/2017 6:09 PM VULCAN CREWMEMBER Pulse 72 07/23/2017 6:09 PM VULCAN CREWMEMBER Temperature 36.9 C (98.5 F) 07/23/2017 6:09 PM VULCAN CREWMEMBER Respiratory Rate - - Oxygen Saturation 99% 07/23/2017 6:09 PM VULCAN CREWMEMBER Inhaled Oxygen Concentration - - Weight 79.1 kg (174 lb 4.8 oz) 07/30/2021 1:20 P M VULCAN CREWMEMBER Height 170.2 cm (5' 7) 07/23/2017 6:09 PM VULCAN CREWMEMBER Body Mass Index 27.3 07/23/2017 6:09 PM VULCAN CREWMEMBER Plan of Treatment Not on file Insurance Care Teams Street Light Mechanic Relationship Specialty Start Date End Date No, Physician PCP - General 07/30/21
[2025-07-26 13:39] VITALS: BP 139/78; PULSE 60; RESP 18; O2SAT 97
--- OUTSIDE RECORDS SUMMARY | 2025-07-26 13:47 | XMS_ITS | Encounter Summary ---
Author Organization [facility] Address [address] [place] [address] Care Team Providers Care Credit Administration Manager Name Role Phone Prieto Valentine DO Primary Care Provider + Ward Polanco MD Unavailable [phone] Encounter Details Date Type Department Care Team (Late st Contact Info) Description 06/17/2025 Results Follow-Up [facility] Family & Internal Medicine [facility] [address] [place] [address] Prieto Valentine DO [address] [place], [place] [phone] FOLIC ACID SERUM, VITAMIN B-12, CBC W/DIFF AUTOMATED Social History Tobacco Use Types Packs/Day Years Used Date Smoking Tobacco: Some Days Cigarettes 0.5 41 Started: 04/02/1982; Last attempted to quit: 04/02/2023 Smokeless Tobacco: Former Alcohol Use Standard Drinks/Week Comments No 0 [...] Care Team (Late st Contact Info) Description 11/09/2025 9:00 AM CDT Office Visit [facility] Family & Internal Medicine - [place] [address] [place] [address] Prieto Valentine DO [address] [place] [phone] documented as of this encounter Visit Diagnoses Not on filedocumented in this encounter Additional Health Concerns Assessment Noted Time PHQ-9 Depression Total Score: 0 07/09/20 24 1:00 PM ROLL FORM OPERATOR documented as of this encounter Care Teams Credit Administration Manager Relationship Specialty Start Date End Date Prieto Valentine DO [address] [place] [id number] PCP - General FAMILY PRACTICE 01/22/19 Ward Polanco MD [address] [place] [address] [place] Personal Injury Attorney INTERVENTIONAL CARDIOLOGY 02/02/19 documented as of this encounter
--- OUTSIDE RECORDS SUMMARY | 2025-07-26 13:47 | XMS_ITS | Clinical Summary ---
Author Organization [facility] [place] Address [address] [address] Care Team Providers Care Enterprise Systems Engineer Name Role Phone Jayden Wilson DO Primary Care Provider Allergies No known active allergies Medications multivitamin (DAILY-OTILIA) tablet Take 1 Tablet by mouth daily. Active Potassium 99 mg Tablet Take by mouth. Active Active Problems Patient Care Coordination No te Formatting of this note migh t be different from the original. ELECTRICIAN MASTER DR SELVIN RAMOS MD, [facility] Problem Noted Date Diagnosed Date Arthritis Tobacco [...] - 1-dose 75+ series) 12/01/2034 Care Teams Enterprise Systems Engineer Relationship Specialty Start Date End Date Jayden Wilson DO [address] [place] [address] PCP - General Family Practice 04/24/16
--- OUTSIDE RECORDS SUMMARY | 2025-07-26 13:47 | XMS_ITS | Clinical Summary ---
Author Organization [facility] [employer] Address [address] [facility] [place] [address] Care Team Providers Care Tool Chaser Name Role Phone Unavailable Primary Care Provider Unavailabl e Source Comments [facility] [employer],non-owned Affiliates and Associated Physician Practices is amultiple site organization consisting of ambulatory clinics and hospital sitesin [place], [place] and [place]. This disclosure is being madepursuant to the Care Everywhere program and may not contain all information available regarding this patient. Last updated 18.[employer] Allergies No known active allergies Medications * [...] by the physician, the nurse and the farmworker poultry. The procedure was verified in the endoscopy [...] for surveillance. Procedure Code(s): --- Professional --- 94336, Colonoscopy, flexible; with biopsy, single or multiple --- Technical --- 32015, Colonoscopy, flexible; with biopsy, single or multiple [...] in this report are preliminary and upon clinical trials manager review may be revised to meet current compliance requirements. Nasim Raya MD 05/15/2016 10:08:50 AM This report has been signed electronically. Number of Addenda: 0 Note Initiated On: 05/15/2016 9:48 AM Estimated Blood Loss: Estimated blood loss: none. [facility] 05/15/2016 9:48 AM CDT Nasim Raya MD GI PROCEDURE ORDERABLES Edit ed Result - Final [facility] from Last 3 Months or Most Recently Relevant to Health Maintenance Insurance [facility] Address: [facility] [address] [place] [address]
--- OUTSIDE RECORDS SUMMARY | 2025-07-26 13:47 | XMS_ITS | Clinical Summary ---
Author Organization [address] Address [address] [place] [phone] Care Team Providers Care Artists' Model Name Role Phone No, Physician Primary Care Provider [phone] Allergies No known active allergies Medications No known medications Active Problems No known active problems Social History Tobacco Use Types Packs/Day Years Used Date Smoking Tobacco: Never Assessed Sex and Gender Information Value Date Recorded Sex Assigned at Not on file Legal Sex Male 12:00 AM MAXILLOFACIAL PATHOLOGY Gender Identity Not on file Sexual Orientation Not on file Last Filed Vital Signs Vital Sign Reading Time Taken Comments Blood Pressure 118/69 07/23/2017 6:09 PM MAXILLOFACIAL PATHOLOGY Pulse 72 07/23/2017 6:09 PM MAXILLOFACIAL PATHOLOGY Temperature 36.9 C (98.5 F) 07/23/2017 6:09 PM MAXILLOFACIAL PATHOLOGY Respiratory Rate - - Oxygen Saturation 99% 07/23/2017 6:09 PM MAXILLOFACIAL PATHOLOGY Inhaled Oxygen Concentration - - Weight 79.1 kg (174 lb 4.8 oz) 07/30/2021 1:20 P M MAXILLOFACIAL PATHOLOGY Height 170.2 cm (5' 7) 07/23/2017 6:09 PM MAXILLOFACIAL PATHOLOGY Body Mass Index 27.3 07/23/2017 6:09 PM MAXILLOFACIAL PATHOLOGY Plan of Treatment Not on file Insurance Care Teams Artists' Model Relationship Specialty Start Date End Date No, Physician PCP - General 07/30/21
--- OUTSIDE RECORDS SUMMARY | 2025-07-26 13:47 | XMS_ITS | Encounter Summary ---
Author Organization [facility] Address [address] [place] [address] Care Team Providers Care Chemical Supervisor Name Role Phone Serge Prieto Mario DONALDSON Primary Care Provider + Ward Polanco MD Unavailable [phone] Encounter Details Date Type Department Care Team (Late st Contact Info) Description 04/12/2021 Prep for Procedure [place] [place] [id number] James Singh MD [address] [facility] [address] [place], [place] [phone] Social History Tobacco Use Types Packs/Day Years [...] Description 11/09/2025 9:00 AM CDT Office Visit [facility] Family & Internal Medicine [facility] [address] [place] [phone] Prieto Valentine, DO [address] [place] [address] documented as of this encounter Results * CORONAVIRUS (COVID 19) (04/14/2021 9:20 AM CDT) SPEC DESCRIPTION NASAL 04/14/20 9:20 AM CDT [facility] CORONAVIRUS SARS COV 2 PCR (RESP) NEGATIVE NEGATIVE 04/14/2021 8:08 PM CDT [facility] Comment: THE SARS-CoV-2 TEST HAS BEEN AUTHORIZED BY THE FDA UNDER AN EUA FOR USE BY AUTHORIZED LABORATORIES. PERFORMED BY NUCLEIC ACID AMPLIFICATION PCR FIRST TEST UNKNOWN 04/14/2021 9:20 AM CDT [facility] EMPLOYED IN HEALTHCARE NO 04/14/2021 9:20 AM CDT [facility] SYMPTOMATIC DEFINED BY CDC UNKNOWN 04/14/2021 9:20 AM CDT [facility] HOSPITALIZATION STATUS UNKNOWN 04/14/2021 9:20 AM CDT [facility] PATIENT IN ICU UNKNOWN 04/14/2021 9:20 AM CDT [facility] RESIDENT OF [facility] NO 04/14/2021 9:20 AM CDT [facility] NASAL STRUCTURE / Unknown 04/14/2021 9:20 AM CDT James Singh MD MICROBIOLOGY - GENERAL ORDERABLE S Final Result [facility] [address] [place] [address], [place] [phone] [facility] [address] [place] [address], [place] [phone] documented in this encounter Visit Diagnoses Diagnosis Melena- Primary Blood in stool documented in this encounter Additional Health Concerns Infection Onset Date Last Indicated Resolved Time COVID-19 Rule Out 04/14/2021 04/14/2021 04/14/2021 8:08 PM CDT COVID-19 Rule Out 07/26/2021 07/27/2021 08/02/2021 12:33 AM SENIOR ENVIRONMENTAL CONSULTANT Assessment Noted Time PHQ-9 Depression Total Score: 6 12/29/19 7:55 AM CDT documented as of this encounter Care Teams Chemical Supervisor Relationship Specialty Start Date End Date Prieto Valentine DO [address] [place] [phone] PCP - General FAMILY PRACTICE 01/22/19 Ward Polanco MD [address] [place] [phone] [place] Used Car Salesperson INTERVENTIONAL CARDIOLOGY 02/02/19 documented as of this encounter
--- OUTSIDE RECORDS SUMMARY | 2025-07-26 13:47 | XMS_ITS | Clinical Summary ---
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 90 tablet 3 5 Active cyclobenzaprine (FLEXERIL) 10 MG tabletIndications:A rthritis Take 1 tablet (10 mg total) by mouth 3 (three) times daily as needed for Muscle Spasms. 90 tablet 3 5 Active rosuvastatin (CRESTOR) 5 MG tabletIndications:H yperlipidemia, unspecified hyperlipidemia type Take 1 tablet (5 mg total) by mouth nightly at bedtime. 90 tablet 3 5 Active tamsulosin (FLOMAX) 0.4 MG CapIndications:Brant gn prostatic hyperplasia with nocturia Take 1 capsule (0.4 mg total) by mouth daily. 90 capsule 3 5 Active Active Problems Problem Noted Date Diagnosed Date History of colon polyps 07/09/2024 Family history of colon cancer in mother 024 Melena 03/06/2021 Overview (03/06/2021): Added automatically from request for surgery [id number] Depression with anxiety 03/15/2020 History of asplenia [...] Encounters Date Type Department Care Team Description 06/17/2025 Results Follow-Up [facility] Family & Internal [address] [address] Bijan Márquez, DO FOLIC ACID SERUM, VITAMIN B-12, CBC W/DIFF AUTOMATED 06/08/2025 1:00 PM CASTING OPERATOR Laboratory Only [facility] Internal [address] [address] Bijan Márquez, 06/08/2025 Travel 05/28/2025 Results Follow-Up [facility] Internal [address] [address] Dang Dillon APNP HEMOGLOBIN, GLYCOSYLATED 05/27/2025 1:20 PM CDT Allied Health/Nurse Visit [facility] Internal [address] [address] Bijan Márquez, Allied Health Visit (a1c) 05/27/2025 Travel 05/19/2025 7:49 AM CDT - 05/19/2025 11:59 PM CDT Hospital Encounter [facility] Ultrasound [address] [place] [address] Bjian Márquez, DO Discharge Disposition: Home or Self Care (Routine Discharge) 05/19/2025 Travel 05/17/2025 Results Follow-Up [facility] Family & Internal [address] [address] Bijan Márquez, DO PROSTATE SPECIFIC ANTIGEN,SCREENING, TSH W/REFLEX, LIPID PANEL, Additional followed-up results: 3 05/11/2025 10:20 AM CDT Office Visit [facility] Internal [address] [address] Bijan Márquez, DO Hyperlipidemia (The patient presents for routine follow up. The patient is out of all medications and needs refills. ) 05/11/2025 Travel from Last 3 Months Immunizations Immunization Administration Dates Next Due Fluzone (IIV3, Trivalent, 0. 5 ML Prefilled Syringe) 05/04/2024 Fluzone 6 Months+ Quad (0.5 mL Prefilled Syringe) 07/03/2023,06/12/2022 Fluzone High Dose (IIV, triv alent, 0.5mL) 05/11/2025 Influenza (Generic) 05/04/2024 Influenza Adult (Generic) 07/03/2023,06/12/2022 MMR (MMRII) 04/26/2020 Meningcoccal Group B (Trumen ba)(aka Meningitis) 07/09/2024,07/03/2023,04/26/2020,03/15 Meningococcal (MenQuadfi) 07/03/2023 Meningococcal (Menactra) 03/15/2020 PFIZER COVID-19 (12+) MRNA, LNP-S, PF, KYLAH-SUCROSE, 30 MCG/0.3 ML (COMIRNATY) 05/04/2024 Pneumococcal (Pneumovax 23) 01/21/2015 Pneumococcal (Prevnar 13) 03/15/2020 Pneumococcal (Prevnar 20) 06/12/2022 Tdap (Generic) 04/26/2020,01/21/2015 Tdap (Historical Only-select from magnify glass) 04/26/2020 Family History Medical History Relation Comments Parkinson's Disease Father Cancer Mother colon Relation Status Comments Father Mother Social History Tobacco Use Types Packs/Day Years Used Date Smoking Tobacco: Some Days Cigarettes 0.5 41 Started: 04/02/1982; Last attempted to quit: 04/02/2023 Smokeless Tobacco: Former Tobacco Cessation:Ready to Q uit: Yes; Counseling Given: Yes Alcohol Use Standard Drinks/Week Comments No 0 [...] Sign Reading Time Taken Comments Blood Pressure 110/60 05/11/2025 10:29 AM CDT Pulse 66 05/11/2025 10:29 AM CDT Temperature 36.4 C (97.5 F) 05/11/2025 10:29 AM CDT Respiratory Rate 16 05/11/2025 10:29 AM CDT Oxygen Saturation 98% 05/11/2025 10:29 AM CDT Inhaled Oxygen Concentration - - Weight 78.7 kg (173 lb 8 oz) 05/11/2025 10:29 AM CDT Height 172.7 cm (5' 8) 05/11/2025 10:29 AM CDT Body Mass Index 26.38 05/11/2025 10:29 AM CDT Plan of Treatment Upcoming Encounters Date Type Department Care Team (Late st Contact Info) Description 11/09/2025 9:00 AM CDT Office Visit [facility] Family & Internal Medicine - [address] [address] Bijan Márquez DO [address] [place] [address] Health Maintenance Due Date Last Done Comments Lung Cancer Screening 07/27/2024 07/27/2023, 017 COVID-19 Vaccine (2 - 2024- season) 2026 05/04/2024 Postponed from 04/05/2025 (Patient Refused) RSV Immunization or 60+ Years (1 - Risk 60-74 years 1-dose series) 05/11/2026 Postponed fro m 2019 (Going to Outside Clinic) Zoster Vaccines (1 of 2) 05/11/2026 Pos tponed from 12/01/2009 (Patient Refused) Meningococcal B Vaccine (5 of 5 - Increased Risk Trumenba 3-dose series) 07/09/2026 07/09/2024, 07/03/2023, 04/26/2020, Additional history exists Colorectal Cancer Screening Colonoscopy (10 Years) 12/09/2027 12/08/2024, 12/07/2024, 05/15/2016 Meningococcal Vaccine (3 - Risk 2-dose series) 07/03/2028 07/03/2023, 03/15/2020 DTaP, Tdap and Td Vaccines (4 - Td or Tdap) 04/26/2030 04/26/2020, 04/26/2020, 01/21/2015 Pneumococcal Vaccine: 50+ Years Completed 06/12/2022, 03/15/2020, 01/21/2015 Hepatitis C Completed 05/04/2024 PHQ-2 (Physician [place]) Completed 11/03/2024 Influenza Adult Completed 05/11/2025, 04/07, 05/04/2024, Additional history exists AAA SCREENING Completed 05/19/2025, 07/05, 05/16/2017 Hepatitis A Vaccines Aged Out No long er eligible based on patient's age to complete this topic RSV Immunizations Under 20 Months Aged Out No longer eligible based on patient's age to complete this topic Procedures Procedure Name Priority Date/Time Associated Diagnosis Comments COLLECTION VENOUS BLOOD VENIPUNCTURE Routine 06/08/2025 1:26 PM CASTING OPERATOR Abnormal CBC CBC W/DIFF AUTOMATED Routine 06/08/2025 1:25 PM CASTING OPERATOR Abnormal CBC VITAMIN B-12 Routine 06/08/2025 1:25 PM CASTING OPERATOR Abnormal CBC FOLIC ACID SERUM Routine 06/08/2025 1:25 PM CASTING OPERATOR Abnormal CBC COLLECT.CAPILLARY (FNGR,HEEL,EAR) Routine 05/27/2025 1:35 PM CDT Elevated fasting glucose HEMOGLOBIN, GLYCOSYLATED Routine 05/27/2025 Elevated fasting glucose US AORTA SCREEN Routine 05/19/2025 8:22 AM CDT Screening for abdominal aortic aneurysm CBC W/DIFF AUTOMATED Routine 05/11/2025 11:14 AM CDT Hyperlipidemia, unspecified hyperlipidemia type Annual physical exam COMPREHENSIVE METABOLIC PANEL Routine 05/11/2025 11:14 AM CDT Hyperlipidemia, unspecified hyperlipidemia type Annual physical exam LIPID PANEL Routine 05/11/2025 11:14 AM CDT Hyperlipidemia, unspecified hyperlipidemia type Annual physical exam TSH W/REFLEX Routine 05/11/2025 11:14 AM CDT Hyperlipidemia, unspecified hyperlipidemia type Annual physical exam PROSTATE CANCER SCREENING; PSA TEST Routine 05/11/2025 11:14 AM CDT Hyperlipidemia, unspecified hyperlipidemia type Annual physical exam Screening for prostate cancer COLLECTION VENOUS BLOOD VENIPUNCTURE Routine 05/11/2025 10:57 AM CDT Hyperlipidemia, unspecified hyperlipidemia type HEPATITIS C ANTIBODY Routine 05/04/2024 11:56 AM CDT Encounter for preventative adult health care examination Screening for lipid disorders Screening for endocrine, metabolic and immunity disorder Screening for prostate cancer Need for hepatitis C screening test CT LUNG SCREENING Routine 07/27/2023 2:0 5 PM CASTING OPERATOR Nicotine dependence, cigarettes, in remission COLONOSCOPY Routine 05/15/2016 12:00 AM CDT from Last 3 Months or Most Recently Relevant to Health Maintenance Results * VITAMIN B-12 (06/08/2025 1:25 PM CASTING OPERATOR) Pathologist [facility] VITAMIN B12 S/P/B 273 193 - 986 PG/ML 06/09/2025 3:03 PM CASTING OPERATOR [facility] 06/08/2025 1:25 PM CASTING OPERATOR [facility]ijan [facility] DO LABORATORY Final Re sult Performing Organization Address City/[facility]/ZIP Co de Phone Number [facility] [address] [place] [address], [place] [phone] * FOLIC ACID SERUM (06/08/2025 1:25 PM CASTING OPERATOR) Pathologist [facility] FOLATE 14.4 8.6 - 58.9 NG/ML 06/08/2025 7:54 PM CASTING OPERATOR [facility] 06/08/2025 1:25 PM CASTING OPERATOR Bijan Márquez DO LABORATORY Final Re sult Performing Organization Address [facility] Co de Phone Number [facility] [address] [place] [address], [place] [phone] * (ABNORMAL) CBC W/DIFF AUTOMATED (06/08/2025 1:25 PM CASTING OPERATOR) Only the most recent of2 resultswithin the time period is included. Pathologist [facility] WBC 8.53 4.00 - 10.80 x10'3/uL 06/08/2025 8:00 PM CASTING OPERATOR [facility] RBC 4.03(L) 4.50 - 6.10 x10'6/uL 06/08/2025 8:00 PM CASTING OPERATOR [facility] HGB 12.8(L) 13.0 - 18.0 G/DL 06/08/2025 8:00 PM CASTING OPERATOR [facility] HCT 40.0 37.0 - 52.0 % 06/08/2025 8:00 PM [facility] MCV 99.3 78.0 - 100.0 FL 06/08/2025 8:00 PM [facility] MCH 31.8(H) 27.0 - 31.0 PG 06/08/2025 8:00 PM [facility] MCHC 32.0(L) 33.0 - 36.0 G/DL 06/08/2025 8:00 PM [facility] RDW 13.1 11.5 - 14.5 % 06/08/2025 8:00 PM [facility] PLT 308 150 - 350 x10'3/uL 06/08/2025 8:00 PM [facility] MPV 11.3(H) 7.4 - 10.4 FL 06/08/2025 8:00 PM [facility] DIFFERENTIAL TYPE AUTOMATED DIFFERENTIAL 06/08/2025 8:00 PM [facility] NEUTROPHILS % 32.7 % 06/08/2025 8:00 PM [facility] LYMPHOCYTES % 52.3 % 06/08/2025 8:00 PM [facility] MONOCYTES % 11.3 % 06/08/2025 8:00 PM [facility] EOSINOPHILS % 2.9 % 06/08/2025 8:00 PM [facility] BASOPHILS % 0.8 % 06/08/2025 8:00 PM [facility] IMMATURE GRANS % 0.0 % 06/08/2025 8:00 PM [facility] ABS. NEUTROPHILS 2.79 1.60 - 8.30 x10'3/uL 06/08/2025 8:00 PM [facility] ABS. LYMPHOCYTES 4.46 0.80 - 4.70 x10'3/uL 06/08/2025 8:00 PM [facility] ABS. MONOCYTES 0.96 0.00 - 1.50 x10'3/uL 06/08/2025 8:00 PM CASTING OPERATOR [facility] ABS. EOSINOPHILS 0.25 0.00 - 0.40 x10'3/uL 06/08/2025 8:00 PM CASTING OPERATOR [facility] ABS. BASOPHILS 0.07 0.00 - 0.20 x10'3/uL 06/08/2025 8:00 PM CASTING OPERATOR [facility] ABS. IMMATURE GRANULOCYTES 0.00 0.00 - 0.03 x10'3/uL 06/08/2025 8:00 PM CASTING OPERATOR [facility] 06/08/2025 1:25 PM CASTING OPERATOR Bijan Márquez LABORATORY Final Re sult Performing Organization Address [facility] Co de Phone Number [facility] [address] [place] [address], * HEMOGLOBIN, GLYCOSYLATED (05/27/2025) HGB A1C 5.6 % [facility] 05/27/2025 Bijan Mario Márquez LABORATORY Final Re sult Performing Organization Address City/[facility] Co de Phone Number [facility] [address] [place] [address], [place] * [[id number]] US AORTA SCREEN (05/19/2025 8:22 AM CDT) Anatomical Region Laterality Modality Abdomen Ultrasound 05/23/2025 4:08 AM CDT Impressions 05/23/2025 4:09 AM CDT IMPRESSION: 1. Fusiform aneurysmal dilatation of proximal abdominal aorta up to 3.1 cm Referred By: BIJAN MÁRQUEZ Interpreted By: Charbel Lee MD, 05/23/2025 4:08 AM Narrative 05/23/2025 4:09 AM CDT [facility] [address] [place] [address] EXAMINATION: Abdominal Aortic Ultrasound. EXAM DATE/TIME: 05/19/2025 8:00 AM REASON FOR EXAM: Screening Smoking history. Hypertension. COMPARISON: None TECHNIQUE: Transabdominal ultrasound evaluation of the aorta was performed for analysis of grayscale and color Doppler imaging characteristics. FINDINGS:. Proximal aorta measures 2.8 x 3.1 cm. Mid aorta measures 2.3 x 2.5 cm per the distal aorta measures 2.2 x 2.4 cm. Proximal right iliac artery measures 1.2 x 1.2 cm. Proximal left iliac artery measures 1.1 x 1.1 cm. No periaortic fluid collections. Blood flow identified on color imaging at all interrogated portions of the aorta. Procedure Note Charbel Lee MD - 05/23/2025 [facility] [address] [facility] [place] [address] EXAMINATION: Abdominal Aortic Ultrasound. EXAM DATE/TIME: 05/19/2025 8:00 AM REASON FOR EXAM: Screening Smoking history. Hypertension. COMPARISON: None TECHNIQUE: Transabdominal ultrasound evaluation of the aorta was performedfor analysis of grayscale and color Doppler imaging characteristics. FINDINGS:. Proximal aorta measures 2.8 x 3.1 cm. Mid aorta measures 2.3x 2.5 cm per the distal aorta measures 2.2 x 2.4 cm. Proximal right iliacartery measures 1.2 x 1.2 cm. Proximal left iliac artery measures 1.1 x1.1 cm. No periaortic fluid collections. Blood flow identified on colorimaging at all interrogated portions of the aorta. IMPRESSION: 1. Fusiform aneurysmal dilatation of proximal abdominal aorta up to 3.1cm Referred By: BIJAN MÁRQUEZ Interpreted By: Charbel Lee MD, 05/23/2025 4:08 AM Bijan Márquez DO ULTRASOUND Final Re sult * TSH W/REFLEX (05/11/2025 11:14 AM CDT) TSH 1.453 0.358 - 3.740 uIU/ML 05/11/2025 5:21 PM CDT [facility] 05/11/2025 11:1 4 AM CDT Bijan Márquez DO LABORATORY Final Re sult [facility] [address] [place] [address], [place] [phone] * PROSTATE SPECIFIC ANTIGEN,SCREENING (05/11/2025 11:14 AM CDT) PSA 1.32 <4.00 NG/ML 05/11/2025 5:05 PM CDT [facility] Comment: ASSAY PERFORMED BY [employer] IMMUNOASSAY METHODOLOGY USING SIEMENS DIMENSION REAGENT. PATIENT RESULTS DETERMINED BY ASSAYS FROM DIFFERENT MANUFACTURERS AND/OR BY DIFFERENT METHODS MAY NOT BE COMPARABLE. 05/11/2025 11:1 4 AM CDT us Bijan Márquez DO OTHER Final Re sult [facility] [address] [place] [address], [place] [phone] * (ABNORMAL) COMPREHENSIVE METABOLIC PANEL (05/11/2025 11:14 AM CDT) Pathologist [facility] SODIUM S/P/B 140 136 - 145 MMOL/L 05/11/2025 5:21 PM CDT -[facility] POTASSIUM S/P/B 4.3 3.5 - 5.1 MMOL/L 05/11/2025 5:21 PM CDT -[facility] CHLORIDE S/P/B 105 98 - 107 MMOL/L 05/11/2025 5:21 PM CDT -[facility] CO2 22.6 21 - 32 MMOL/L 05/11/2025 5:21 PM CDT [facility] GLUCOSE 104(H) 70 - 99 MG/DL 05/11/2025 5:21 PM CDT -[facility] BUN 10 7 - 18 MG/DL 05/11/2025 5:21 PM CDT -[facility] CREATININE S/P/B 1.03 0.70 - 1.30 MG/DL 05/11/2025 5:21 PM CDT [facility] CALCIUM S/P/B 9.1 8.4 - 10.5 MG/DL 05/11/2025 5:21 PM CDT [facility] BILIRUBIN TOTAL S/P/B 0.2 0.2 - 1.0 MG/DL 05/11/2025 5:21 PM CDT -[facility] ALKALINE PHOSPHATASE S/P/B 80 45 - 115 U/L 05/11/2025 5:21 PM CDT -[facility] AST 15 15 - 37 U/L 05/11/2025 5:21 PM CDT [facility] ALT 15(L) 16 - 63 U/L 05/11/2025 5:21 PM T [facility] TOTAL PROTEIN S/P/B 7.4 6.4 - 8.2 G/DL 05/11/2025 5:21 PM T [facility] ALBUMIN S/P/B 3.5 3.4 - 5.0 G/DL 05/11/2025 5:21 PM CDT [facility] ANION GAP 12.4 5 - 15 MMOL/L 05/11/2025 5:21 PM T [facility] Comment:REFERENCE RANGE NOT ESTABLISHED OSMOLALITY (CALC) 289 MOSM/KG 025 5:21 PM T [facility] Comment:REFERENCE RANGE NOT ESTABLISHED GFR ESTIMATE 81(L) >90 ML/MIN/1. 73 M2 05/11/2025 5:21 PM T [facility] GFR NOTES GFR REFERENCE S: 05/11/2025 5:21 PM T [facility] Comment: THE ESTIMATED GFR IS CALCULATED USING THE 2020 CKD-EPI EQUATION. THE FOLLOWING CATEGORIES FOR GRADING RENAL FUNCTION ARE RECOMMENDED BY THE INTERNATIONAL SOCIETY OF NEPHROLOGY (KDIGO 2012 CLINICAL PRACTICE GUIDELINE). G1,NORMAL OR HIGH: >89 ml/min/1.73 m2 G2,MILDLY DECREASED: 60-89 ml/min/1.73 m2 G3A,MILDLY TO MODERATELY DECREASED: 45-59 ml/min/1.73 m2 G3B,MODERATELY TO SEVERELY DECREASED: 30-44 ml/min/1.73 m2 G4,SEVERELY DECREASED: 15-29 ml/min/1.73 m2 G5,KIDNEY FAILURE: <15 ml/min/1.73 m2 05/11/2025 11:1 4 AM CDT us Bijan Márquez DO LABORATORY Final Re sult -[facility] [address] [place] [address], * (ABNORMAL) LIPID PANEL (05/11/2025 11:14 AM CDT) [facility] CHOLESTEROL 248(H) <200 MG/DL 05/11/2025 5:21 PM CDT [facility] TRIGLYCERIDES 132 <150 MG/DL 05/11/2025 5:21 PM CDT [facility] HDL 46 >40 MG/DL 05/11/2025 5:21 PM CDT [facility] LDL-C 176(H) <100 MG/DL 05/11/2025 5:21 PM CDT [facility] VLDL CALCULATION 26 5 - 28 MG/DL 05/11/2025 5:21 PM CDT [facility] CHOL/HDL RATIO 5.4(H) 0.0 - 4.0 05/11/2025 5:21 PM CDT [facility] LDL/HDL 3.8(H) 0.41 - 2.13 05/11/2025 5:21 PM CDT [facility] NON HDL CHOLESTEROL 202(H) <140 MG/DL 05/11/2025 5:21 PM CDT [facility] 05/11/2025 11:1 4 AM CDT Bijan Márquez DO LABORATORY Final Re sult [facility] [address] [place] [address], * HEPATITIS C ANTIBODY (05/04/2024 11:56 AM CDT) [facility] HEPATITIS C AB NON-REACTI VE NON-REACT AVA 05/05/2024 7:16 PM CDT [facility] Comment: ANTIBODIES TO HCV NOT DETECTED. DOES NOT EXCLUDE THE POSSIBILITY OF EXPOSURE TO HCV. 05/04/2024 11:5 6 AM CDT Bijan Márquez DO LABORATORY Final Re sult [facility] [address] [place] [address], [place] [phone] [id number] * CT LUNG SCREENING (07/27/2023 2:05 PM CASTING OPERATOR) Anatomical Region Laterality Modality Chest Computed Tomogra phy 08/04/2023 11:3 7 AM CASTING OPERATOR Impressions 08/04/2023 11:41 AM CASTING OPERATOR IMPRESSION: 1. Lung-RADS Category 2: Benign appearance [...] 08/04/2023 11:37 AM Narrative 08/04/2023 11:41 AM CASTING OPERATOR EXAM: LUNG SCREENING LOW-DOSE CT THORAX WITHOUT [...] LDCT Chest in 12 months (on or [id number]/2024). Referred By: BIJAN MÁRQUEZ Interpreted By: Farhat Morrissey MD, 08/04/2023 11:37 AM us Bijan Márquez DO CT Final Re sult * Colonoscopy (05/15/2016 12:00 AM CDT) 05/15/2016 05/15/2016 Narrative [facility] TO EPIC CONVERSION - 05/15/2016 12:00 AM CDT Documented hx of procedure Procedure Note Cecil Valero MD - 06/08/2018 Documented hx of procedure us Generic Conversion Md MD AGUILAR PROCEDURE ORDERABLES Final Result [facility] TO EPIC CONVERSION from Last 3 Months or Most Recently Relevant to Health Maintenance Insurance MEDICAID [facility] [place] [address] Care Teams Dry Wall Installer Relationship Specialty Start Date End Date Bijan Márquez DO [address] [place] [id number] PCP - General FAMILY PRACTICE 01/22/19 Ward Polanco MD [address] [place] [address] [facility] Laborer INTERVENTIONAL CARDIOLOGY 02/02/19
--- OUTSIDE RECORDS SUMMARY | 2025-07-26 13:47 | XMS_ITS | Clinical Summary ---
Author Organization [facility] Care Team Providers Care Associate Professor Of Chemistry Name Role Phone Unavailable Primary Care Provider [...]
== END 2025-07-26 13:40 | disposition home or self-care (01) ==
PROVIDERS: Emergency Provider Student in an Organized Health Care Education/Training Program; PCP Student in an Organized Health Care Education/Training Program
DX: M54.50 Low back pain, unspecified (principal); E78.00 Pure hypercholesterolemia, unspecified; Z87.891 Personal history of nicotine dependence; Z90.81 Acquired absence of spleen; Z79.899 Other long term (current) drug therapy
CPT/HCPCS: 96372; 99283; A9270; J1885